=== PATIENT | male | born 1935 | race Caucasian/White ===

== ENCOUNTER 2016-04-03 10:35 | Emergency (ER) | payer BC ==
[~2016-04-03] VITALS: Ht 180.3 cm; Wt 97.6 kg
[2016-04-03 10:44] VITALS: TEMP 36.6; Ht 180.3 cm; Wt 97.6 kg
[2016-04-03] MEDS ORDERED: LEVO75TA PO (11:09)
--- NOTE | 2016-04-03 12:23 | DIAGNOSTIC IMAGING REPORT ---
CT HEAD WITHOUT CONTRAST (CT) CLINICAL HISTORY: Confusion status post head trauma COMPARISON STUDY: No previous studies for comparison. TECHNIQUE: Axial CT of the brain is performed from the vertex to the skull base. IV contrast was not administered for this examination. CT DOSE: 614.27 mGy.cm FINDINGS: No intra or extra-axial mass lesions are visualized. There is no CT evidence of acute cortical infarction. There is no evidence of midline shift. There is no acute hemorrhage. No calvarial fractures are visualized. There are extensive white matter hypodensities likely on a small vessel basis. There is mild ventricular prominence, proportional to degree of volume loss. 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 There is no evidence of acute sinusitis IMPRESSION: 1. Extensive white matter disease, likely on a small vessel ischemic basis 2. No acute intracranial findings. No evidence of acute hemorrhage. Electronically signed by: Lawson Muñoz M.D. 04/03/2016 12:22 PM
[2016-04-03 12:45] VITALS: BP 130/91; PULSE 71; O2SAT 94
--- NOTE | 2016-04-03 12:45 | EMERGENCY ROOM VISIT NOTE ---
History Report prepared by Elham: Gabriela Pyle Under the Supervision of: Dr. Wayne Wilson D.O. First contact with patient: 11:44 Chief Complaint: FALL Stated Complaint: CONFUSION History of Present Illness The patient is a 80 year old male who presents to the Emergency Room with complaints of a sudden fall that occurred [employer]. He rates his discomfort as a 1/ 10 in severity. The patient came to the ED via ambulance. EMS found the patient lying in the street. He states that he was getting the mail when he lost his balance, which is what caused him to fall. He fell onto his left side and hit the left side of his head but did not experience LOC. His mailbox is a little bit away and he states that he always walks to get the mail without shoes on which he states is why his feet are dirty.He also states that he bathes every two days and today was the day that he was supposed to bathe but he hasn't had the chance to. The patient states that he feels fine and was brought here against his will. The patient states that this is only the second time that he fell in 10 years. The patient is not oriented to time but states that he doesn' t need to know that. Source of History: patient Onset: [employer]DEL [employer]ER Symptom Intensity: /10 Quality: other (fall) Timing: other (sudden) Associated Symptoms: No LOC Note: denies pain Review of Systems See HPI for pertinent positives & negatives. A total of 10 systems reviewed and were otherwise negative. Past Medical & Surgical Medical Problems: (1) Hypercholesteremia (2) Hypothyroidism Family History No pertinent family history Social History Smoking Status: Never Smoker Marital Status: Housing Status: lives with family Occupation Status: retired Current/Historical Medications Scheduled Levothyroxine Sodium (Synthroid), 1 TAB PO 3XWK Allergies Uncoded Allergies: N (Allergy, Unknown, 05/15/02) NOVACINE (Allergy, Unknown, 05/15/02) Physical Exam Vital Signs Date Time Temp Pulse Resp B/P Pulse Ox O2 Delivery O2 Flow Rate FiO2 04/03/16 12:45 71 16 130/91 94 04/03/16 10:44 36.6 76 19 135/83 98 Room Air 04/03/16 10:43 75 Physical Exam CONSTITUTIONAL/VITAL SIGNS: Reviewed / noted above. GENERAL: Non-toxic in appearance. INTEGUMENTARY: Warm, dry, and [place]. HEAD: Normocephalic. Abrasions to left side of face. EYES: without scleral icterus or trauma. ENT/OROPHARYNX: clear and moist. LYMPHADENOPATHY/NECK: Is supple without lymphadenopathy or meningismus. RESPIRATORY: Lungs clear and equal. CARDIOVASCULAR: Regular rate and rhythm. GI/ABDOMEN: Soft and nontender. No organomegaly or pulsatile mass. No rebound or guarding. Normal bowel sounds. EXTREMITIES: Warm and well perfused. BACK: No CVA tenderness. NEUROLOGICAL: Intact without focal deficits. GCS: 15 PSYCHIATRIC: normal affect. MUSCULOSKELETAL: Normally developed with good muscle tone. Medical Decision & Procedures ER Provider Diagnostic Interpretation: CT results as stated below per my review and radiologist interpretation: CT HEAD WITHOUT CONTRAST (CT) CLINICAL HISTORY: Confusion status post head trauma COMPARISON STUDY: No previous studies for comparison. TECHNIQUE: Axial CT of the brain is performed from the vertex to the skull base. IV contrast was not administered for this examination. CT DOSE: 614.27 mGy.cm FINDINGS: No intra or extra-axial mass lesions are visualized. There is no CT evidence of acute cortical infarction. There is no evidence of midline shift. There is no acute hemorrhage. No calvarial fractures are visualized. There are extensive white matter hypodensities likely on a small vessel basis. There is mild ventricular prominence, proportional to degree of volume loss. 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 There is no evidence of acute sinusitis IMPRESSION: 1. Extensive white matter disease, likely on a small vessel ischemic basis 2. No acute intracranial findings. No evidence of acute hemorrhage. Electronically signed by: Lawson Muñoz M.D. 04/03/2016 12:22 PM ED Course 1144: Previous medical records were reviewed. The patient was evaluated in room A10. A complete history and physical examination was performed. 1253: On reevaluation, the patient is doing well. I discussed the results and findings with the patient. He verbalized agreement of the treatment plan. He was discharged home. Medical Decision Differential includes close head injury, intracranial bleed, facial trauma, cervical spine trauma, chest and thoracic trauma, abdominal and intra-abdominal trauma, spine neurologic trauma, extremity trauma. This is a 80-year-old male who presents to the ED with a chief complaint of a fall. The fall occurred in the patient's [address] [place] mailbox. He stated he was going out to get his mail. He was his balance and fell. He had some abrasions to the left side of his face. The patient has no other complaints. A CT scan of the brain did not show any acute process. He denies any other injuries. He does have some mild bilateral knee abrasions but has full range of motion without discomfort or pain. The patient's son came to the ED and pick him up. He is felt to be stable for discharge. Impression Primary Impression: Fall Additional Impression: Abrasion Scribe Attestation The scribe's documentation has been prepared under my direction and personally reviewed by me in its entirety. I confirm that the note above accurately reflects all work, treatment, procedures, and medical decision making performed by me. Departure Information Dispostion Home / Self-Care Referrals Heladio Webb III, M.D. (PCP) Forms HOME CARE DOCUMENTATION FORM, IMPORTANT VISIT INFORMATION Patient Instructions A Signature Page, My [facility] Additional Instructions CAT scan did not show any significant injury. Watch wounds for infection. Follow-up with your doctor for further care and evaluation in 1-2 days as needed. Return to the emergency department for worsening or new symptoms or any concerns. You have been examined and treated today on an emergency basis only. This is not a substitute for, or an effort to provide, complete comprehensive medical care. It is impossible to recognize and treat all injuries or illnesses in a single emergency department visit. It is therefore important that you follow up closely with your doctor. Call as soon as possible for an appointment.
[2017-02-01] MEDS ORDERED: CMD3 PO (14:31)
[2017-02-01] MEDS ORDERED: LPR25 PO (14:31)
[2017-02-01] MEDS ORDERED: LVNIS80 SQ (14:31)
== END 2016-04-03 12:59 | disposition home or self-care (01) ==
LOC: EDBD 10:35 → C.EDA 10:37
DX: S00.81XA Abrasion of other part of head, initial encounter (principal); W19.XXXA Unspecified fall, initial encounter; E78.00 Pure hypercholesterolemia, unspecified; E03.9 Hypothyroidism, unspecified; Z79.899 Other long term (current) drug therapy

== ENCOUNTER 2016-09-29 18:55 | Emergency (ER) | payer BC ==
[~2016-09-29] VITALS: Ht 172.7 cm; Wt 84.3 kg
[~2016-09-29 18:55] MED LIST: LEVO75TA PO
[2016-09-29 19:06] VITALS: TEMP 36.9; Ht 172.7 cm; Wt 84.3 kg
[2016-09-29] MEDS ORDERED: HALOPERIDOL LACTATE 5 MG/ML 1 ML VIAL IM STA (19:31)
[2016-09-29] MEDS ORDERED: LORAZEPAM 2 MG/ML 1 ML VIAL IM STA (19:31)
[2016-09-29] MEDS ORDERED: HALOPERIDOL LACTATE 5 MG/ML 1 ML VIAL ONE (19:33)
[2016-09-29] MEDS ORDERED: LORAZEPAM 2 MG/ML 1 ML VIAL ONE (19:33)
--- NOTE | 2016-09-29 19:50 | EMERGENCY ROOM VISIT NOTE ---
History Report prepared by Elham: Maria L Rojas Under the Supervision of: Dr. Wayne Cage M.D. 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 Per nursing staff, the patient has a history of dementia and lives at [facility]. Today he reportedly had a call tolliver wrapped around his neck and was stating that he wanted to . The patient has increased agitation. HPI limited secondary to dementia and agitation. 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 Review of Systems See HPI for pertinent positives & negatives. ROS limited secondary to dementia and poor cooperation. Past Medical & Surgical Medical Problems: (1) Dementia (2) Hypercholesteremia (3) Hypothyroidism Family History No pertinent family history Social History Smoking Status: Unknown if Ever Smoked Marital Status: Housing Status: lives with family Occupation Status: retired Current/Historical Medications Scheduled Aspirin (Aspirin Ec), 81 MG PO DAILY Atorvastatin (Lipitor), 20 MG PO HS Cyanocobalamin (Vitamin Deficiency Inject), 1,000 MCG SQ WK Donepezil Hydrochloride (Donepezil Hcl), 10 MG PO HS Epinephrine (Epipen), 0.3 MG IM UD Ergocalciferol (Vitamin D 25380 Unit), 50,000 UNIT PO WK Escitalopram (Lexapro), 5 MG PO DAILY Lactase (Lactaid), 1 TAB PO TID Lactase (Lactaid), 1 TABS PO PRN Levothyroxine Sodium (Synthroid), 50 MCG PO DAILY Scheduled PRN Acetaminophen Tab (Tylenol), 650 MG PO Q4 PRN for Pain or Fever Senna/Docusate Sod (Senokot S), 1 TAB PO HS PRN for Constipation Allergies Coded Allergies: BEE STING (Verified Allergy, Unknown, UNKNOWN, 09/29/16) Uncoded Allergies: NOVACINE (Allergy, Unknown, 05/15/02) Physical Exam Vital Signs Date Time Temp Pulse Resp B/P (MAP) Pulse Ox O2 Delivery O2 Flow Rate FiO2 09/29/16 21:37 98 Room Air 6/30/17 21:37 87 12 97/71 99 09/29/16 21:00 74 12 118/74 99 Room Air 09/29/16 19:06 36.9 84 20 133/84 99 Room Air Physical Exam GENERAL: Patient is a healthy-appearing well-nourished, patient is yelling and screaming HEAD: Normocephalic atraumatic EYES: Ocular movements intact pupils equal and react to light OROPHARYNX mucous membranes are moist no exudates present no erythema or edema present NECK: Supple no nuchal rigidity CHEST: Good equal expansion LUNGS: Clear and equal to auscultation CARDIAC: Normal S1 and S2 ABDOMEN: Soft nontender no guarding BACK: No CVA tenderness EXTREMITIES: No pain upon palpation normal muscle strength in all groups no clubbing cyanosis or edema NEURO: Patient is following commands and answering questions appropriately. Alert and oriented x3 Cranial Nerves 2-12 grossly intact PSYCH: The patient is yelling and screaming. Medical Decision & Procedures ER Provider Diagnostic Interpretation: Radiology results as stated below per my review and radiologist interpretation: CT SCAN OF THE BRAIN WITHOUT IV CONTRAST FINDINGS: Brain parenchyma: There are age-related involutional changes noting advanced subcortical and periventricular microangiopathic change. There is no hemorrhage, mass effect, or evidence of acute territorial ischemia by CT criteria. Hernandez-white matter is preserved. No extra-axial fluid collection is seen. Ventricles, sulci, cisterns: Prominent secondary to involutional change. Megacisterna magna is incidentally noted. Intracranial vasculature: There is atherosclerotic calcification of the cavernous carotid and vertebral arteries. Calvarium: Unremarkable. Sinuses and mastoids: The visualized paranasal sinuses are clear. The mastoid air cells are well pneumatized. Orbits: The bony orbits are grossly intact. IMPRESSION: Senescent changes as above with no hemorrhage, mass effect, or evidence of acute territorial ischemia by CT criteria. Electronically signed by: Reji Rocha M.D. 09/29/2016 8:42 PM Dictated Date/Time: 09/29/2016 8:40 PM SINGLE VIEW CHEST FINDINGS: An AP, portable, upright chest radiograph is obtained. No prior studies are available for comparison at the time of dictation. The examination is significantly degraded by portable technique and patient rotation, as was by the patient's head obscuring the apices.. The heart is enlarged and there is atherosclerotic calcification of the thoracic aorta. The pulmonary vasculature is noncongested. Nonspecific interstitial thickening is noted. There is minimal left basilar atelectasis. No airspace consolidation, large pleural effusion, or pneumothorax is seen. The skeletal structures are osteopenic. The bony thorax is grossly intact. IMPRESSION: Cardiomegaly with no acute cardiopulmonary abnormality. Electronically signed by: Reji Rocha M.D. 09/29/2016 8:58 PM Dictated Date/Time: 09/29/2016 8:57 PM Laboratory Results 09/29/16 20:17 Red Blood Count 4.88, Mean Corpuscular Volume 89.3, Mean Corpuscular Hemoglobin 30.7, Mean Corpuscular Hemoglobin Concent 34.4, Mean Platelet Volume 10.5, Neutrophils (%) (Auto) 51.9, Lymphocytes (%) (Auto) 28.0, Monocytes (%) (Auto) 14.9, Eosinophils (%) (Auto) 3.0, Basophils (%) (Auto) 0.6, Neutrophils # (Auto ) 3.35, Lymphocytes # (Auto) 1.80, Monocytes # (Auto) 0.96, Eosinophils # (Auto ) 0.19, Basophils # (Auto) 0.04 09/29/16 20:17 Test 09/29/16 20:00 09/29/16 20:06 09/29/16 20:17 Bedside Glucose 104 mg/dl (70-99) Urine Color DK YELLOW Urine Appearance CLOUDY (CLEAR) Urine pH 5.0 (4.5-7.5) Urine Specific [place] 1.028 (1.000-1.030) Urine Protein NEG (NEG) Urine Glucose (UA) NEG (NEG) Urine Ketones TRACE (NEG) Urine Occult Blood 1+ (NEG) Urine Nitrite NEG (NEG) Urine Bilirubin NEG (NEG) Urine Urobilinogen NEG (NEG) Urine Leukocyte Esterase NEG (NEG) Urine WBC (Auto) 1-5 /hpf (0-5) Urine RBC (Auto) 0-4 /hpf (0-4) Urine Hyaline Casts (Auto) 1-5 /lpf (0-5) Urine Epithelial Cells (Auto) 5-10 /lpf (0-5) Urine Bacteria (Auto) NEG (NEG) Urine Opiates Screen NEG (NEG) Urine Methadone, Qualitative NEG (NEG) Urine Barbiturates NEG (NEG) Urine Phencyclidine (PCP) Level NEG (NEG) Ur Amphetamine/Methamphetamine NEG (NEG) MDMA (Ecstasy) Screen NEG (NEG) Urine Benzodiazepines Screen NEG (NEG) Urine Cocaine Metabolite NEG (NEG) Urine Marijuana (THC) NEG (NEG) White Blood Count 6.44 K/uL (4.8-10.8) Red Blood Count 4.88 M/uL (4.7-6.1) Hemoglobin 15.0 g/dL (14.0-18.0) Hematocrit 43.6 % (42-52) Mean Corpuscular Volume 89.3 fL (80-100) Mean Corpuscular Hemoglobin 30.7 pg (25-34) Mean Corpuscular Hemoglobin Concent 34.4 g/dl (32-36) Platelet Count 172 K/uL (130-400) Mean Platelet Volume 10.5 fL (7.4-10.4) Neutrophils (%) (Auto) 51.9 % Lymphocytes (%) (Auto) 28.0 % Monocytes (%) (Auto) 14.9 % Eosinophils (%) (Auto) 3.0 % Basophils (%) (Auto) 0.6 % Neutrophils # (Auto) 3.35 K/uL (1.4-6.5) Lymphocytes # (Auto) 1.80 K/uL (1.2-3.4) Monocytes # (Auto) 0.96 K/uL (0.11-0.59) Eosinophils # (Auto) 0.19 K/uL (0-0.5) Basophils # (Auto) 0.04 K/uL (0-0.2) RDW Standard Deviation 43.3 fL (36.4-46.3) RDW Coefficient of Variation 13.2 % (11.5-14.5) Immature Granulocyte % (Auto) 1.6 % Immature Granulocyte # (Auto) 0.10 K/uL (0.00-0.02) Anion Gap 8.0 mmol/L (3-11) Est Creatinine Clear Calc Drug Dose 88.0 ml/min Estimated GFR () 102.8 Estimated GFR (Non- 88.7 BUN/Creatinine Ratio 20.3 (10-20) Calcium Level 8.3 mg/dl (8.5-10.1) Total Bilirubin 0.5 mg/dl (0.2-1) Direct Bilirubin 0.2 mg/dl (0-0.2) Aspartate Amino Transf (AST/SGOT) 28 U/L (15-37) Alanine Aminotransferase (ALT/SGPT) 29 U/L (12-78) Alkaline Phosphatase 62 U/L (45-117) Total Protein 5.7 gm/dl (6.4-8.2) Albumin 2.5 gm/dl (3.4-5.0) Thyroid Stimulating Hormone (TSH) 4.770 uIu/ml (0.300-4.500) Ethyl Alcohol mg/dL < 3.0 mg/dl (0-3) Labs reviewed by ED physician. Medications Administered Medications (Trade) Dose Ordered Sig/Nigel Route Start Time Stop Time Status Last Admin Dose Admin Haloperidol Lactate (Haldol Inj) 10 mg NOW STAT IM 09/29/16 19:31 09/29/16 19:33 DC 09/29/16 19:41 10 MG Lorazepam (Ativan Inj) 2 mg NOW STAT IM 09/29/16 19:31 09/29/16 19:33 DC 09/29/16 19:41 2 MG ED Course 1920: Past medical records reviewed. The patient was evaluated in room A8. A complete history and physical examination was performed. 1930: Ativan Inj 2mg IM, Haldol Inj 10mg IM. 1932: Haldol Inj 10mg IM. Ativan Inj 2mg IM. 0: The patient was signed out to Dr. Capellan at change of shift. Medical Decision Differential diagnosis: Etiologies such as mood disorder, infection, hypoglycemia, electrolyte abnormalities, cardiac sources, intracerebral event, toxicologic, neurologic, as well as others were entertained. Medication Reconciliation: I attest that I have personally reviewed the patient' s current medication list Blood Pressure Screening: Patient was found to have normal blood pressure on screening and does not require follow up. This is a 81-year-old male who presents emergency department with an attempt to hang himself at his correction. Upon arrival to the emergency department the patient is belligerent and combative and will not allow anybody to come near him for this reason the patient was 10mg Haldol and 2 mg Ativan and so that a CT of the head could be obtained along with a chest x-ray and laboratory work. The patient's son is in [place] and cannot be here due to his being in the ICU in [place]. He was medically cleared by me. The patient was unable to tolerate mental health examination due to the sedation. Can help did provide 302 from the correction staff. He will be reassessed by can help in the morning. Patient will be signed out to Dr. Sena Helms change of shift. Impression Primary Impression: Mood disorder Scribe Attestation The scribe's documentation has been prepared under my direction and personally reviewed by me in its entirety. I confirm that the note above accurately reflects all work, treatment, procedures, and medical decision making performed by me. Departure Information Dispostion Still a Patient Referrals Heladio Webb III, M.D. (PCP) Patient Instructions My [facility]
[2016-09-29 20:28] LABS: BASO % 0.6 %; BASO ABS # 0.04 K/uL (0-0.2); COMPLETE YES; HEMATOCRIT 43.6 % (42-52); IG% 1.6 %; MEAN CELL VOLUME 89.3 fL (80-100); MEAN CORPUSCULAR HEMOGLOBIN 30.7 pg (25-34); MEAN CORPUSCULAR HGB CONC 34.4 g/dl (32-36); MEAN PLATELET VOLUME 10.5 fL (7.4-10.4); MONO % 14.9 %; NEUT % 51.9 %; PLATELET COUNT 172 K/uL (130-400); RED BLOOD COUNT 4.88 M/uL (4.7-6.1); WHITE BLOOD COUNT 6.44 K/uL (4.8-10.8)
[2016-09-29 20:33] LABS: URINE APPEARANCE CLOUDY (CLEAR); URINE BILIRUBIN NEG (NEG); URINE COLOR DK YELLOW; URINE NITRITE NEG (NEG); URINE SPECIFIC GRAVITY 1.028 (1.000-1.030); UROBILINOGEN NEG (NEG)
[2016-09-29 20:35] LABS: MANUAL MICROSCOPIC REQUIRED? NO; REVIEW REQ? NO
--- NOTE | 2016-09-29 20:43 | DIAGNOSTIC IMAGING REPORT ---
CT SCAN OF THE BRAIN WITHOUT IV CONTRAST CLINICAL HISTORY: Change in mental status. COMPARISON STUDY: CT of the brain dated 04/03/2016. TECHNIQUE: Unenhanced axial CT scan of the brain is performed from the vertex to the skull base. CT DOSE: 614.27 mGy.cm FINDINGS: Brain parenchyma: There are age-related involutional changes noting advanced subcortical and periventricular microangiopathic change. There is no hemorrhage, mass effect, or evidence of acute territorial ischemia by CT criteria. Hernandez-white matter is preserved. No extra-axial fluid collection is seen. Ventricles, sulci, cisterns: Prominent secondary to involutional change. Megacisterna magna is incidentally noted. Intracranial vasculature: There is atherosclerotic calcification of the cavernous carotid and vertebral arteries. Calvarium: Unremarkable. Sinuses and mastoids: The visualized paranasal sinuses are clear. The mastoid air cells are well pneumatized. Orbits: The bony orbits are grossly intact. IMPRESSION: Senescent changes as above with no hemorrhage, mass effect, or evidence of acute territorial ischemia by CT criteria. Electronically signed by: Reji Rocha M.D. 09/29/2016 8:42 PM Dictated Date/Time: 09/29/2016 8:40 PM
[2016-09-29 20:52] LABS: BUN/CREATININE RATIO 20.3 (10-20); CALCIUM 8.3 mg/dl (8.5-10.1); CREATININE 0.72 mg/dl (0.60-1.40); POTASSIUM 3.4 mmol/L (3.5-5.1)
[2016-09-29 20:54] LABS: BENZODIAZEPINE, URINE NEG (NEG); COCAINE,URINE NEG (NEG); PHENCYCLIDINE, URINE NEG (NEG)
--- NOTE | 2016-09-29 21:00 | DIAGNOSTIC IMAGING REPORT ---
SINGLE VIEW CHEST CLINICAL HISTORY: Change in mental status. FINDINGS: An AP, portable, upright chest radiograph is obtained. No prior studies are available for comparison at the time of dictation. The examination is significantly degraded by portable technique and patient rotation, as was by the patient's head obscuring the apices.. The heart is enlarged and there is atherosclerotic calcification of the thoracic aorta. The pulmonary vasculature is noncongested. Nonspecific interstitial thickening is noted. There is minimal left basilar atelectasis. No airspace consolidation, large pleural effusion, or pneumothorax is seen. The skeletal structures are osteopenic. The bony thorax is grossly intact. IMPRESSION: Cardiomegaly with no acute cardiopulmonary abnormality. Electronically signed by: Reji Rocha M.D. 09/29/2016 8:58 PM Dictated Date/Time: 09/29/2016 8:57 PM
[2016-09-29 21:02] LABS: THYROID STIMULATING HORMONE 4.77 uIu/ml (0.300-4.500)
[2016-09-29 21:37] VITALS: O2SAT 98
[2016-09-29] MEDS ORDERED: LACT3000 PO ×2 (22:44→22:49)
[2016-09-29] MEDS ORDERED: ASPI81TA28 PO (22:44)
[2016-09-29] MEDS ORDERED: ERGO500037 PO (22:44)
[2016-09-29] MEDS ORDERED: LEVO50TA PO (22:44)
[2016-09-29] MEDS ORDERED: SENN-65 PO (22:44)
[2016-09-29] MEDS ORDERED: ESCI10TA17 PO (22:44)
[2016-09-29] MEDS ORDERED: ATOR-22 PO (22:44)
[2016-09-29] MEDS ORDERED: ACET325T96 PO (22:44)
[2016-09-29] MEDS ORDERED: CYAN100074 SQ (22:44)
[2016-09-29] MEDS ORDERED: EPP3/2 IM (22:44)
[2016-09-29] MEDS ORDERED: DONE1TAB26 PO (22:44)
[2016-09-30] MEDS ORDERED: ESCITALOPRAM OXALATE 10 MG TAB PO STA (06:09)
[2016-09-30] MEDS ORDERED: LEVOTHYROXINE 50 MCG TAB PO STA (06:09)
--- NOTE | 2016-09-30 06:13 | EMERGENCY ROOM VISIT NOTE ---
ED Visit Note First contact with patient: 02:27 This case was signed out to me at change of shift. The patient had received sedation with Haldol and Ativan and cannot yet be evaluated. The patient slept throughout the night. 0605: He is easily awoken at this time. I will order morning medications. Once the patient is completely awake, he will be evaluated by psych. 0630: The case will be signed out to Dr. Snowden at change of shift.
--- NOTE | 2016-09-30 10:12 | EMERGENCY ROOM VISIT NOTE ---
ED Visit Note First contact with patient: 06:30 Patient signed out to me from Dr. Capellan awaiting placement following psychiatric evaluation. I reevaluated the patient at bedside. Patient denies any current complaints including chest pain, trouble breathing, palpitations, abdominal pain. The receiving facility requested an EKG be done on the patient. This was done by nursing staff and shown to me. EKG shows atrial fibrillation at a rate of 90, left axis, right bundle-branch block, no acute ischemic changes. Per records that accompanied the patient from [facility] he does have a history of controlled atrial fibrillation and currently takes aspirin, no other anticoagulation, likely due to age and fall risk in the setting of dementia.
[2016-09-30 12:40] VITALS: BP 133/78; PULSE 95; O2SAT 95
== END 2016-09-30 12:42 ==
LOC: EDBD 18:55 → C.EDA 18:57
DX: F39 Unspecified mood [affective] disorder (principal); F03.90 Unspecified dementia, unspecified severity, without behavioral disturbance, psychotic disturbance, mood disturbance, and anxiety; E78.00 Pure hypercholesterolemia, unspecified; E03.9 Hypothyroidism, unspecified; Z79.82 Long term (current) use of aspirin; Z79.899 Other long term (current) drug therapy

== ENCOUNTER 2017-01-31 15:23 | Inpatient (IN) | payer BC, OTHER ==
[~2017-01-31] VITALS: Ht 180.3 cm; Wt 77.7 kg
[~2017-01-31 15:23] MED LIST changes: +CYAN100074 SQ; +ERGO500037 PO; +ESCI10TA17 PO; +LACT3000 PO; -LEVO75TA PO; +SENN-65 PO
[2017-01-31] MEDS ORDERED: ASPIRIN 81 MG CHEW PO STA (15:47)
[2017-01-31] MEDS ORDERED: DILTIAZEM BOLUS / DRIP IV STA ×2 (15:47→16:52)
[2017-01-31] MEDS ORDERED: DILTIAZEM HCL INJ 125 MG in DEXTROSE 5% 100ML IV PRN (16:00)
[2017-01-31] MEDS ORDERED: DILTIAZEM HCL 5 MG/ML 5 ML VIAL IV SCH (16:00)
[2017-01-31] MEDS ORDERED: VENL75CA PO (16:06)
[2017-01-31] MEDS ORDERED: OLAN1TAB7 PO (16:06)
[2017-01-31] MEDS ORDERED: SENN1TAB80 PO (16:06)
[2017-01-31] MEDS ORDERED: POLY335019 PO (16:06)
[2017-01-31] MEDS ORDERED: CLOP1TAB15 PO (16:06)
[2017-01-31] MEDS ORDERED: CYAN100020 PO (16:06)
[2017-01-31 16:13] LABS: BASO % 0.5 %; BASO ABS # 0.04 K/uL (0-0.2); COMPLETE YES; EOS % 2.4 %; HEMATOCRIT 47.1 % (42-52); IG% 0.3 %; LYMPH % 23.5 %; LYMPH ABS # 1.83 K/uL (1.2-3.4); MEAN CELL VOLUME 94.4 fL (80-100); MEAN CORPUSCULAR HEMOGLOBIN 31.3 pg (25-34); MEAN CORPUSCULAR HGB CONC 33.1 g/dl (32-36); MEAN PLATELET VOLUME 11.6 fL (7.4-10.4); MONO % 8.1 %; NEUT % 65.2 %; PLATELET COUNT 181 K/uL (130-400); RED BLOOD COUNT 4.99 M/uL (4.7-6.1); WHITE BLOOD COUNT 7.78 K/uL (4.8-10.8)
--- NOTE | 2017-01-31 16:21 | DIAGNOSTIC IMAGING REPORT ---
CHEST ONE VIEW PORTABLE CLINICAL HISTORY: Chest pain. COMPARISON STUDY: Chest radiograph September 29, 2016. FINDINGS: There may be underlying emphysema. No pneumothorax or pleural effusion is present. There is no consolidation to suggest pneumonia. Cardiomediastinal silhouette is normal. Pulmonary vascularity is normal. IMPRESSION: 1. No acute cardiopulmonary findings. 2. Possible emphysema. Electronically signed by: Iftikhar Marr M.D. 01/31/2017 4:20 PM Dictated Date/Time: 01/31/2017 3:55 PM
[2017-01-31 16:38] LABS: BUN/CREATININE RATIO 18.4 (10-20); CALCIUM 9.1 mg/dl (8.5-10.1); CREATININE 0.82 mg/dl (0.60-1.40); POTASSIUM 4.3 mmol/L (3.5-5.1)
[2017-01-31 16:40] VITALS: BP 122/87; PULSE 73; TEMP 36.8; O2SAT 96; Ht 180.3 cm; Wt 77.7 kg
--- NOTE | 2017-01-31 16:50 | History and Physical ---
History & Physical Date & Time of Service: Jan 31, 2017 at 16:50 Chief Complaint: Cardaic Assessment Primary Care Physician: Heladio Webb III, M.D. 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 , with past medical hx of CVA , hyperlipidemia , Hypothyroidism , depression Has been following with Neurology for dementia, there is concern for TIA /CVA , pt was referred to Cardiology office for Holter monitor Had office visit with Cardiology Dr Cooper at [facility] , pt noted to be tachycardic with rapid irregular rhythm , EKG in office showed rapid afib RVR ~130 pt is a very poor historian due to Dementia , does not recall event of having a stroke on Record -pt is at [facility] , can not tell me whether he is at the Assisted Living or at the SNF denies of any complain of palpitation , no SOB or chest discomfort not sure why he in Hospital and hooked up to all the IV medications pt has no significant past cardiac history. No prior hx of arrhythmia or Afib Past Medical/Surgical History Medical Problems: (1) Dementia Status: Chronic (2) Hypercholesteremia Status: Chronic (3) Hypothyroidism Status: Chronic Family History No pertinent family history Social History Smoking Status: Never Smoker Marital Status: Occupational Status: retired Multi-Drug Resistant Organisms History of MDRO: No Allergies Coded Allergies: Lactose Intolerance (GI) (Verified Allergy, Intermediate, PT states lactose intolerant, 09/30/16) BEE STING (Verified Allergy, Unknown, UNKNOWN, 09/29/16) Uncoded Allergies: NOVACINE (Allergy, Unknown, 05/15/02) Home Medications Scheduled Aspirin (Aspirin Ec), 81 MG PO DAILY Atorvastatin (Lipitor), 20 MG PO HS Clopidogrel (Plavix), 75 MG PO DAILY Cyanocobalamin (Vitamin B12), 1,000 MCG PO DAILY Donepezil Hydrochloride (Donepezil Hcl), 10 MG PO HS Ergocalciferol (Vitamin D 38604 Unit), 50,000 INTER.UNIT PO WK Levothyroxine Sodium (Synthroid), 50 MCG PO DAILY Olanzapine (Zyprexa), 2.5 MG PO AMHS Polyethylene Glycol 3350 (Miralax), 17 GM PO QAM Sennosides (Senna Lax), 17.2 MG PO QAM Venlafaxine Hcl (Effexor Xr), 75 MG PO QAM Scheduled PRN Acetaminophen Tab (Tylenol), 650 MG PO Q4H PRN for Pain or Fever Epinephrine (Epipen), 0.3 MG IM Q24H PRN for Bee Sting(s) Review of Systems limited due pt's dementia , unable to recall Neurologic: + memory loss Physical Exam Vital Signs Date Time Temp Pulse Resp B/P (MAP) Pulse Ox O2 Delivery O2 Flow Rate FiO2 01/31/17 16:19 96 20 122/88 96 Room Air 01/31/17 16:16 116 01/31/17 15:33 97 Room Air 01/31/17 15:33 36.3 119 28 139/86 97 Room Air General Appearance: no apparent distress Head: normocephalic, atraumatic Eyes: PERRL, EOMI, sclerae normal Neck: no JVD, no carotid bruits, trachea midline Respiratory/Chest: lungs clear, normal breath sounds, no respiratory distress Cardiovascular: + irregularly irregular Abdomen/GI: non tender, soft Neurologic/Psych: no motor/sensory deficits, alert, + pertinent finding ( demenita , forgetfulness ) Diagnostics Laboratory Results Results Past 24 Hours Test 01/31/17 15:37 01/31/17 15:54 Range/Units Creatine Kinase MB Ratio 0-3.0 White Blood Count 7.78 4.8-10.8 K/uL Red Blood Count 4.99 4.7-6.1 M/uL Hemoglobin 15.6 14.0-18.0 g/dL Hematocrit 47.1 42-52 % Mean Corpuscular Volume 94.4 80-100 fL Mean Corpuscular Hemoglobin 31.3 25-34 pg Mean Corpuscular Hemoglobin Concent 33.1 32-36 g/dl Platelet Count 181 130-400 K/uL Mean Platelet Volume 11.6 7.4-10.4 fL Neutrophils (%) (Auto) 65.2 % Lymphocytes (%) (Auto) 23.5 % Monocytes (%) (Auto) 8.1 % Eosinophils (%) (Auto) 2.4 % Basophils (%) (Auto) 0.5 % Neutrophils # (Auto) 5.07 1.4-6.5 K/uL Lymphocytes # (Auto) 1.83 1.2-3.4 K/uL Monocytes # (Auto) 0.63 0.11-0.59 K/uL Eosinophils # (Auto) 0.19 0-0.5 K/uL Basophils # (Auto) 0.04 0-0.2 K/uL RDW Standard Deviation 47.4 36.4-46.3 fL RDW Coefficient of Variation 13.9 11.5-14.5 % Immature Granulocyte % (Auto) 0.3 % Immature Granulocyte # (Auto) 0.02 0.00-0.02 K/uL Sodium Level 141 136-145 mmol/L Potassium Level 4.3 3.5-5.1 mmol/L Chloride Level 107 98-107 mmol/L Carbon Dioxide Level 30 21-32 mmol/L Anion Gap 4.0 3-11 mmol/L Blood Urea Nitrogen 15 7-18 mg/dl Creatinine 0.82 0.60-1.40 mg/dl Est Creatinine Clear Calc Drug Dose 77.8 ml/min Estimated GFR () 97.5 Estimated GFR (Non- 84.1 BUN/Creatinine Ratio 18.4 10-20 Random Glucose 111 70-99 mg/dl Calcium Level 9.1 8.5-10.1 mg/dl Diagnostic Radiology CHEST ONE VIEW PORTABLE CLINICAL HISTORY: Chest pain. COMPARISON STUDY: Chest radiograph September 29, 2016. FINDINGS: There may be underlying emphysema. No pneumothorax or pleural effusion is present. There is no consolidation to suggest pneumonia. Cardiomediastinal silhouette is normal. Pulmonary vascularity is normal. IMPRESSION: 1. No acute cardiopulmonary findings. 2. Possible emphysema. EKG Vent. rate 118 BPM MN interval * ms QRS duration 148 ms QT/QTc 378/529 ms P-R-T axes * 258 13 Atrial fibrillation with rapid ventricular response with premature ventricular or aberrantly conducted complexes Right bundle branch block Abnormal ECG When compared with ECG of 30-SEP-2016 09:53, No significant change was found Confirmed by DEWAYNE GUEVARA ([id number]) on 01/31/2017 4:50:40 PM Impression Assessment and Plan AFIB RVR new diagnosis prior hx of CVA , was seen at Cardiology office at [facility] for Holter monitor placement -recommended by Neurology pt found to be in rapid Afib RVR -pt was sent to [facility] ED in ER pt remains in Afib IV Cardizem gtt ordered for Beta kateryna pt denies of symptom of chest pain , SOB , DYE or dizzy spell admit in tele serial cardiac markers , ECHO to assess LV function , wall motion activity IV heparin wt based protocol Cardiology consulted , case d/w Cardiology PRIOR HX OF CVA : cont Aspirin , Plavix , statin no focal deficit PROLONG QTc: Qtc > 500 avoid medication can prolong /worsen Qtc SSRI /Namenda on hold avoid Zofran monitor in tele daily EKG follow electrolytes daily to monitor K/Mg level HX OF DEPRESSION : will hold Celexa due to prolong Qtc DEMENTIA : oriented to person only follows with Neurology will hold Namenda for prolong Qtc HYPOTHYROIDISM : cont Levothyroxine 50 mcg daily TSH -wnl HYPERLIPIDEMIA ; cont statin ordered for fasting lipid panel in AM ELEVATED D DIMER : FULL CODE DVT PROPHYLAXIS : IV heparin wt based protocol DISPOSITION: resident at [facility] PT/OT al social service consulted for discharge planning Level of Care Telemetry Resuscitation Status FULL RESUSCITATION VTE Prophylaxis VTE Risk Assessment Done? Y/N: Yes Risk Level: Moderate Additional Copies To Serge Cooper, Heladio Rick III, M.D.
[2017-01-31 16:58] LABS: CKMB/CK RATIO 2.8 (0-3.0)
[2017-01-31] MEDS ORDERED: NITROGLYCERIN 0.4 MG SL PER TAB CHARGE SL PRN (17:00)
[2017-01-31] MEDS ORDERED: EPINEPHRINE ADULT AUTO-INJECT 0.3 MG SYR IM PRN (17:00)
[2017-01-31] MEDS ORDERED: POLYETHYLENE (MIRALAX) 17 GM PACK PO PRN (17:00)
[2017-01-31] MEDS ORDERED: ACETAMINOPHEN 325 MG TAB PO PRN (17:00)
[2017-01-31] MEDS ORDERED: MAGNESIUM HYDROXIDE SUSP 30 ML UDC PO PRN (17:00)
[2017-01-31] MEDS ORDERED: ALUMINUM/MAGNESIUM/SIMETH (MAALOX MAX) 30 ML UDC PO PRN (17:00)
[2017-01-31] MEDS ORDERED: HEPARIN 25000 UNIT/500 ML D5W ONE (17:11)
[2017-01-31 17:40] VITALS: O2SAT 96
[2017-01-31] MEDS ORDERED: HEPARIN 25000 UNIT/ D5W 500 ML (PHARMACY PREPARED) IV PRN ×2 (17:45)
[2017-01-31 19:08] VITALS: BP 131/75; PULSE 80; TEMP 36.8; O2SAT 97
[2017-01-31] MEDS ORDERED: PNEUMOCOCCAL POLYSACCHARIDES 25 MCG/0.5 ML VIAL/SYR IM. ONE (20:00)
[2017-01-31] MEDS ORDERED: PNEUMOCOCCAL ADMINISTRATION CHARGE ONE (20:00)
--- NOTE | 2017-01-31 20:11 | EMERGENCY ROOM VISIT NOTE ---
History Report prepared by Elham: Evelyn Celis Under the Supervision of: Dr. Paulo Hussein D.O. 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 The patient was at a neurology appointment today. He was sent over to cardiology for a heart monitor. They found that his heart rate was fast and irregular. He was sent to the ED. Pt denies headache, change in vision, fevers, chest pain, shortness of breath, nausea, vomiting, diarrhea, pain with urination, abdominal pain, leg swelling and melena. He denies any history of atrial fibrillation. He had a stroke several months ago. He has a history of dementia and lives at [place]. He denies any history of brain bleed, blood in the stool, hematuria, hematemesis , hemoptysis, recent surgeries or trauma. 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 Review of Systems See HPI for pertinent positives & negatives. A total of 10 systems reviewed and were otherwise negative. Past Medical & Surgical Medical Problems: (1) Atrial fibrillation with RVR (2) Dementia (3) Hypercholesteremia (4) Hypothyroidism Family History No pertinent family history Social History Smoking Status: Unknown if Ever Smoked Marital Status: Housing Status: lives with family Occupation Status: retired Current/Historical Medications Scheduled Aspirin (Aspirin Ec), 81 MG PO DAILY Atorvastatin (Lipitor), 20 MG PO HS Clopidogrel (Plavix), 75 MG PO DAILY Cyanocobalamin (Vitamin B12), 1,000 MCG PO DAILY Donepezil Hydrochloride (Donepezil Hcl), 10 MG PO HS Ergocalciferol (Vitamin D 80959 Unit), 50,000 INTER.UNIT PO WK Levothyroxine Sodium (Synthroid), 50 MCG PO DAILY Olanzapine (Zyprexa), 2.5 MG PO AMHS Polyethylene Glycol 3350 (Miralax), 17 GM PO QAM Sennosides (Senna Lax), 17.2 MG PO QAM Venlafaxine Hcl (Effexor Xr), 75 MG PO QAM Scheduled PRN Acetaminophen Tab (Tylenol), 650 MG PO Q4H PRN for Pain or Fever Epinephrine (Epipen), 0.3 MG IM Q24H PRN for Bee Sting(s) Allergies Coded Allergies: Lactose Intolerance (GI) (Verified Allergy, Intermediate, PT states lactose intolerant, 09/30/16) BEE STING (Verified Allergy, Unknown, UNKNOWN, 09/29/16) Uncoded Allergies: NOVACINE (Allergy, Unknown, 05/15/02) Physical Exam Vital Signs Date Time Temp Pulse Resp B/P (MAP) Pulse Ox O2 Delivery O2 Flow Rate FiO2 01/31/17 16:40 36.8 73 20 122/87 96 Room Air 01/31/17 16:30 85 20 125/76 95 Room Air 01/31/17 16:19 96 20 122/88 96 Room Air 01/31/17 16:16 116 01/31/17 15:33 97 Room Air 01/31/17 15:33 36.3 119 28 139/86 97 Room Air Physical Exam GENERAL: Sitting up in bed, chronically ill appearing, no acute distress, nontoxic EYE EXAM: normal conjunctiva. OROPHARYNX: no exudate, no erythema, lips, buccal mucosa, and tongue normal and mucous membranes are moist NECK: supple, no nuchal rigidity, no adenopathy, non-tender LUNGS: Clear to auscultation. Normal chest wall mechanics HEART: Tachycardic and irregularly irregular. no murmurs, S1 normal and S2 normal ABDOMEN: abdomen soft, non-tender, normo-active bowel sounds, no masses, no rebound or guarding. BACK: Back is symmetrical on inspection and there is no deformity, no midline tenderness, no CVA tenderness. SKIN: no rashes and no bruising UPPER EXTREMITIES: upper extremities are grossly normal. LOWER EXTREMITIES: No pitting edema. Calves equal bilaterally. NEURO EXAM: Normal sensorium, cranial nerves II-XII grossly intact, normal speech, no gross weakness of arms, no gross weakness of legs. Medical Decision & Procedures ER Provider Diagnostic Interpretation: Radiology results as stated below per my review and the radiologist's interpretation: CHEST ONE VIEW PORTABLE CLINICAL HISTORY: Chest pain. COMPARISON STUDY: Chest radiograph September 29, 2016. FINDINGS: There may be underlying emphysema. No pneumothorax or pleural effusion is present. There is no consolidation to suggest pneumonia. Cardiomediastinal silhouette is normal. Pulmonary vascularity is normal. IMPRESSION: 1. No acute cardiopulmonary findings. 2. Possible emphysema. Electronically signed by: Iftikhar Marr M.D. 01/31/2017 4:20 PM Dictated Date/Time: 01/31/2017 3:55 PM Laboratory Results 01/31/17 15:54 Red Blood Count 4.99, Mean Corpuscular Volume 94.4, Mean Corpuscular Hemoglobin 31.3, Mean Corpuscular Hemoglobin Concent 33.1, Mean Platelet Volume 11.6, Neutrophils (%) (Auto) 65.2, Lymphocytes (%) (Auto) 23.5, Monocytes (%) (Auto) 8.1, Eosinophils (%) (Auto) 2.4, Basophils (%) (Auto) 0.5, Neutrophils # (Auto) 5.07, Lymphocytes # (Auto) 1.83, Monocytes # (Auto) 0.63, Eosinophils # (Auto) 0.19, Basophils # (Auto) 0.04 01/31/17 15:54 Test 01/31/17 15:54 White Blood Count 7.78 K/uL (4.8-10.8) Red Blood Count 4.99 M/uL (4.7-6.1) Hemoglobin 15.6 g/dL (14.0-18.0) Hematocrit 47.1 % (42-52) Mean Corpuscular Volume 94.4 fL (80-100) Mean Corpuscular Hemoglobin 31.3 pg (25-34) Mean Corpuscular Hemoglobin Concent 33.1 g/dl (32-36) Platelet Count 181 K/uL (130-400) Mean Platelet Volume 11.6 fL (7.4-10.4) Neutrophils (%) (Auto) 65.2 % Lymphocytes (%) (Auto) 23.5 % Monocytes (%) (Auto) 8.1 % Eosinophils (%) (Auto) 2.4 % Basophils (%) (Auto) 0.5 % Neutrophils # (Auto) 5.07 K/uL (1.4-6.5) Lymphocytes # (Auto) 1.83 K/uL (1.2-3.4) Monocytes # (Auto) 0.63 K/uL (0.11-0.59) Eosinophils # (Auto) 0.19 K/uL (0-0.5) Basophils # (Auto) 0.04 K/uL (0-0.2) RDW Standard Deviation 47.4 fL (36.4-46.3) RDW Coefficient of Variation 13.9 % (11.5-14.5) Immature Granulocyte % (Auto) 0.3 % Immature Granulocyte # (Auto) 0.02 K/uL (0.00-0.02) D-Dimer 1150 ug/L FEU (0-500) Anion Gap 4.0 mmol/L (3-11) Est Creatinine Clear Calc Drug Dose 77.8 ml/min Estimated GFR () 97.5 Estimated GFR (Non- 84.1 BUN/Creatinine Ratio 18.4 (10-20) Calcium Level 9.1 mg/dl (8.5-10.1) Total Creatine Kinase 40 U/L (39-308) Creatine Kinase MB 1.1 ng/ml (0.5-3.6) Creatine Kinase MB Ratio 2.8 (0-3.0) Troponin I 0.061 ng/ml (0-0.045) Thyroid Stimulating Hormone (TSH) 2.020 uIu/ml (0.300-4.500) Laboratory results per my review. Medications Administered Medications (Trade) Dose Ordered Sig/Nigel Route Start Time Stop Time Status Last Admin Dose Admin Aspirin (Aspirin Chew) 324 mg NOW STAT PO 01/31/17 15:47 01/31/17 15:48 DC 01/31/17 16:17 324 MG Diltiazem HCl (Cardizem Inj) 10 mg TODAY@1600 IV 01/31/17 16:00 01/31/17 17:00 DC 01/31/17 16:16 10 MG Diltiazem HCl 125 mg/Dextrose 125 ml @ 0 mls/hr Q0M PRN IV 01/31/17 16:00 03/02/17 15:59 01/31/17 16:17 10 MLS/HR ECG Indication: tachycardia Rate (beats per minute): 118 Rhythm: atrial fibrillation (with RVR) Findings: PVC, RBBB ED Course ED COURSE: Vital signs were reviewed and showed tachycardia. The patients medical record was reviewed The above diagnostic studies were performed and reviewed. ED treatments and interventions as stated above. 1529: The patient was evaluated in room A9B. A complete history and physical examination was performed. 1547: Aspirin 324 mg PO, Diltiazem HCl 10 mg IV. 1646: I [facility] the [facility] She will evaluate the patient for further management. 1650: Upon reevaluation, the patient is resting comfortably.I discussed my findings with the patient and his son and they understand and agree with the treatment plan. Based on the patients age, coexisting illnesses, exam and lab findings the decision to treat as an inpatient was made. The patient remained stable while under my care. The patient will be evaluated for further management. Medical Decision Differential diagnoses includes but is not limited to acute coronary syndrome, myocardial infarction, pericarditis, pulmonary embolus, aortic dissection, pneumonia, pneumothorax, musculoskeletal, shingles, esophageal. Patient is a 81-year-old male who is at his neurologist appointment and was found to be tachycardic. He was sent to cardiology who found him to be in A. fib with RVR. EMS transported him to the ER. Heart rate was in the 110s to 130s. BMP showed an elevated troponin 0.06. Favor demand ischemia. EC was unremarkable. Chest x-ray was unremarkable. Patient was placed on a Cardizem drip and bolus. Patient was monitored closely. Patient was admitted to internal medicine completely asymptomatic. Medication Reconcilliation Current Medication List: was personally reviewed by me Blood Pressure Screening Patient's blood pressure: Normal blood pressure Blood pressure disposition: Did not require urgent referral Consults Time Called: 1641 Consulting Physician[facility] Returned Call: 1646 I reviewed the patient's case with her. She will evaluate the patient for further management. Impression Primary Impression: Atrial fibrillation with rapid ventricular response Additional Impression: Elevated troponin Critical Care I have personally spent 35 minutes of critical care time in the direct management of this patient. This includes bedside care, interpretation of diagnostic studies, and testing, discussion with consultants, patient, and family members, and other required patient management activities. This 35 minutes is in excess of all separately billable procedures. Scribe Attestation The scribe's documentation has been prepared under my direction and personally reviewed by me in its entirety. I confirm that the note above accurately reflects all work, treatment, procedures, and medical decision making performed by me. Departure Information Dispostion Being Evaluated By Hospitalist Referrals Heladio Webb III, M.D. (PCP) Patient Instructions My [facility] Problem Qualifiers
[2017-01-31] MEDS ORDERED: ATORVASTATIN 20 MG TAB PO SCH (21:00)
[2017-01-31] MEDS ORDERED: OPTIRAY 320 IV PRN (21:45)
[2017-01-31] MEDS: METOPROLOL TARTRATE 25 MG TAB PO SCH (22:29)
[2017-01-31] MEDS ORDERED: ATOR-22 PO (22:44)
[2017-01-31] MEDS ORDERED: DONE1TAB26 PO (22:44)
[2017-01-31] MEDS ORDERED: ACET325T96 PO (22:44)
[2017-01-31] MEDS ORDERED: EPP3/2 IM (22:44)
[2017-01-31] MEDS ORDERED: ASPI81TA28 PO (22:44)
[2017-01-31] MEDS ORDERED: LEVO50TA PO (22:44)
--- NOTE | 2017-01-31 22:56 | DIAGNOSTIC IMAGING REPORT ---
(CHEST FOR PE) ANGIO WITH CT DOSE: 341.15 mGy.cm HISTORY: Chest pain dyspnea TECHNIQUE: Multiaxial CT images of the chest were performed following the intravenous administration of contrast to evaluate the pulmonary arteries. Maximal intensity projection images were also obtained. A dose lowering technique was utilized adhering to the principles of ALARA. COMPARISON STUDY: None. FINDINGS: Thoracic aorta shows minimal atherosclerotic change. Pulmonary vasculature enhances appropriately. No major filling defect is appreciated. There are vessels of the lung bases are not well evaluated due to respiratory motion. Emphysematous changes noted bilaterally. Bibasilar interstitial prominence is noted. There are no consolidative infiltrates. There is a small hiatal hernia. IMPRESSION: 1. Study is negative for a central or main pulmonary embolus 2. The pulmonary vessels in the lung bases are not well evaluated due to respiratory and somatic motion. 3. Emphysematous change. 4. Bibasilar interstitial change possibly atelectatic and/or inflammatory in nature The above report was generated using voice recognition software. It may contain grammatical, syntax or spelling errors. Electronically signed by: Karan Wilson M.D. 01/31/2017 10:55 PM Dictated Date/Time: 01/31/2017 10:51 PM
[2017-02-01 00:01] VITALS: BP 99/65; PULSE 63; TEMP 36.8; O2SAT 95
[2017-02-01 01:03] LABS: INR 1.1 (0.9-1.1); PROTHROMBIN TIME (PATIENT) 12.3 SECONDS (9.0-12.0)
[2017-02-01 01:04] LABS: CKMB/CK RATIO 2.1 (0-3.0)
[2017-02-01 03:54] VITALS: BP 110/72; PULSE 74; TEMP 36.4; O2SAT 94
[2017-02-01] MEDS ORDERED: LEVOTHYROXINE 50 MCG TAB PO SCH (06:00)
--- NOTE | 2017-02-01 07:02 | DIAGNOSTIC IMAGING REPORT ---
BILATERAL LOWER EXTREMITY VENOUS DOPPLER CLINICAL HISTORY: Elevated d-dimer. Atrial fibrillation with rapid ventricular response. COMPARISON STUDY: No previous studies for comparison. TECHNIQUE: Sonography of the deep venous system of the bilateral lower extremities was performed. Compression and augmentation were evaluated. FINDINGS: The bilateral common femoral, superficial femoral and popliteal veins were compressible. Augmentation was normal. Flow was shown within the deep calf vessels. IMPRESSION: No evidence of deep venous thrombus within the bilateral lower extremities. Electronically signed by: Iftikhar Marr M.D. 02/01/2017 7:01 AM Dictated Date/Time: 02/01/2017 7:00 AM
[2017-02-01 07:28] LABS: HEMATOCRIT 42.3 % (42-52); MEAN CELL VOLUME 94.4 fL (80-100); MEAN CORPUSCULAR HEMOGLOBIN 32.1 pg (25-34); MEAN PLATELET VOLUME 11.8 fL (7.4-10.4); PLATELET COUNT 161 K/uL (130-400); RED BLOOD COUNT 4.48 M/uL (4.7-6.1); WHITE BLOOD COUNT 6.93 K/uL (4.8-10.8)
[2017-02-01 07:46] LABS: PARTIAL THROMBOPLASTIN RATIO 3.3
[2017-02-01 08:00] LABS: CKMB/CK RATIO 2.2 (0-3.0)
[2017-02-01 08:01] LABS: BUN/CREATININE RATIO 17.9 (10-20); CALCIUM 8.6 mg/dl (8.5-10.1); CREATININE 0.7 mg/dl (0.60-1.40); MAGNESIUM 2.3 mg/dl (1.8-2.4); POTASSIUM 3.8 mmol/L (3.5-5.1)
[2017-02-01 08:05] LABS: CHOLESTEROL/HDL RATIO 2.4
[2017-02-01] MEDS ORDERED: PNEUMOCOCCAL ADMINISTRATION CHARGE ONE (08:15)
[2017-02-01] MEDS ORDERED: PNEUMOCOCCAL POLYSACCHARIDES 25 MCG/0.5 ML VIAL/SYR IM. ONE (08:15)
[2017-02-01 08:18] VITALS: BP 114/73; PULSE 75; TEMP 36.9; O2SAT 94
[2017-02-01] MEDS: METOPROLOL TARTRATE 25 MG TAB PO SCH (08:49)
[2017-02-01] MEDS ORDERED: ASPIRIN 81 MG ECTAB PO SCH (09:00)
[2017-02-01] MEDS ORDERED: SENNA 8.6 MG TAB PO SCH (09:00)
[2017-02-01] MEDS ORDERED: CLOPIDOGREL BISULFATE 75 MG TAB PO SCH (09:00)
[2017-02-01] MEDS ORDERED: POLYETHYLENE (MIRALAX) 17 GM PACK PO SCH (09:00)
[2017-02-01] MEDS ORDERED: CYANOCOBALAMIN 500 MCG TAB (VIT B-12) PO SCH (09:00)
--- NOTE | 2017-02-01 09:42 | Clinical Documentation Query ---
CLINICAL DOCUMENTATION QUERY 81 year old male who presents to the Emergency Room with complaints of persistent irregular heart beat. Troponin's are + and ECG showing changes when compare to previous. In your clinical opinion is this patient being managed for: ( ) Demand Ischemia in setting of Afib with RVR. ( ) Type II SD in setting of AFib RVR ( ) SD precipitating Afib RVR arrhythmia ( ) Not Agree ( ) Other explanation of clinical findings (Please Explain) ( ) Unable to determine (Please Define) ( ) Need to Discuss The medical record reflects the following clinical findings, treatment, and risk factors. Clinical Indicators: HR 119, Troponin's 0.061, 0.059, 0.052, ECG shows Atrial fibrillation with premature ventricular or aberrantly conducted complexes, Right bundle branch block, Left anterior fascicular block Bifascicular block Possible Inferior infarct Abnormal ECG When compared with ECG of 31-JAN-2017 15:30, Nonspecific T wave abnormality now evident in Lateral leads Treatment: ASA, IV Cardizem, IV Heparin, Plavix, Cardiology consult Risk Factors: Age, Hyperlipidemia, tachycardia, Atrial arrhythmia Please clarify and document your clinical opinion in the progress notes and discharge summary. Terms such as "probable", "suspected", "likely", "questionable", "possible", or "still to be ruled out" are acceptable. IF IN AGREEMENT, YOU MUST DOCUMENT ABOVE DIAGNOSTIC STATEMENT IN DAILY PROGRESS NOTES AND DISCHARGE SUMMARY. This document is not part of the patient's record. Thank You, David Artis, MARION [phone]
--- NOTE | 2017-02-01 10:08 | Progress Note ---
Medicine Progress Note Date & Time of Visit: Feb 01, 2017 at 09:59. Subjective seen resting in bed, awake, oriented x 2, not in distress states he feels fine overall denies chest pain, palpitations, dyspnea, dizziness no other symptoms Objective Last 8 Hrs Date Time Temp Pulse Resp B/P (MAP) Pulse Ox O2 Delivery O2 Flow Rate FiO2 02/01/17 08:18 36.9 75 18 114/73 (87) 94 Room Air 02/01/17 04:15 Room Air 02/01/17 03:54 36.4 74 16 110/72 (85) 94 Room Air Physical Exam: General- oriented x 2, not in distress, speaks in sentences with no effort Head- atraumatic Eyes- PERRL, EOMI, anicteric ENT- oropharynx clear Neck- supple, no JVD, no adenopathy, no thyromegaly Lungs- clear breath sounds bilaterally, no rales/wheezes Heart- normal rate, irregularly irregular rhythm, no murmurs Abdomen- normal bowel sounds, soft, nontender Extremities- no pretibial edema, no calf tenderness Neuro- alert, oriented x 2; PERRL, EOMI; no facial palsy; no dysarthria; motor 5 /5 bilaterally; sensation 100% no gross focal deficits Skin- warm & dry Laboratory Results: Last 24 Hours Test 01/31/17 15:54 02/01/17 00:20 02/01/17 06:57 02/01/17 06:58 White Blood Count 7.78 K/uL 6.93 K/uL Red Blood Count 4.99 M/uL 4.48 M/uL Hemoglobin 15.6 g/dL 14.4 g/dL Hematocrit 47.1 % 42.3 % Mean Corpuscular Volume 94.4 fL 94.4 fL Mean Corpuscular Hemoglobin 31.3 pg 32.1 pg Mean Corpuscular Hemoglobin Concent 33.1 g/dl 34.0 g/dl Platelet Count 181 K/uL 161 K/uL Mean Platelet Volume 11.6 fL 11.8 fL Neutrophils (%) (Auto) 65.2 % Lymphocytes (%) (Auto) 23.5 % Monocytes (%) (Auto) 8.1 % Eosinophils (%) (Auto) 2.4 % Basophils (%) (Auto) 0.5 % Neutrophils # (Auto) 5.07 K/uL Lymphocytes # (Auto) 1.83 K/uL Monocytes # (Auto) 0.63 K/uL Eosinophils # (Auto) 0.19 K/uL Basophils # (Auto) 0.04 K/uL RDW Standard Deviation 47.4 fL 48.1 fL RDW Coefficient of Variation 13.9 % 14.1 % Immature Granulocyte % (Auto) 0.3 % Immature Granulocyte # (Auto) 0.02 K/uL D-Dimer 1150 ug/L FEU Sodium Level 141 mmol/L 139 mmol/L Potassium Level 4.3 mmol/L 3.8 mmol/L Chloride Level 107 mmol/L 105 mmol/L Carbon Dioxide Level 30 mmol/L 29 mmol/L Anion Gap 4.0 mmol/L 4.0 mmol/L Blood Urea Nitrogen 15 mg/dl 13 mg/dl Creatinine 0.82 mg/dl 0.70 mg/dl Est Creatinine Clear Calc Drug Dose 77.8 ml/min 91.1 ml/min Estimated GFR () 97.5 104.0 Estimated GFR (Non- 84.1 89.8 BUN/Creatinine Ratio 18.4 17.9 Random Glucose 111 mg/dl 97 mg/dl Calcium Level 9.1 mg/dl 8.6 mg/dl Total Creatine Kinase 40 U/L 33 U/L 32 U/L Creatine Kinase MB 1.1 ng/ml 0.7 ng/ml 0.7 ng/ml Creatine Kinase MB Ratio 2.8 2.1 2.2 Troponin I 0.061 ng/ml 0.059 ng/ml 0.052 ng/ml Thyroid Stimulating Hormone (TSH) 2.020 uIu/ml Prothrombin Time 12.3 SECONDS Prothromb Time International Ratio 1.1 Activated Partial Thromboplast Time 102.9 SECONDS 86.1 SECONDS Partial Thromboplastin Ratio 4.0 3.3 Magnesium Level 2.3 mg/dl Triglycerides Level 83 mg/dl Cholesterol Level 102 mg/dl HDL Cholesterol 42 mg/dl LDL Cholesterol, Calculated 43 mg/dl VLDL Cholesterol, Calculated 17 mg/dl Cholesterol/HDL Ratio 2.4 Assessment & Plan 81 year old male with history of Dementia, TIA/CVA, HLD, Hypothyroidism, Depression presenting with a fib in RVR. NEW ONSET ATRIAL FIBRILLATION WITH RVR prior hx of CVA , was seen at Cardiology office at [facility] for Holter monitor placement -recommended by Neurology pt found to be in rapid Afib RVR -pt was sent to [facility] ED -- HR now controlled, still in A fib Cardizem drip discontinued--> now on Metoprolol 25mg po BID Heparin drip continued -- echo: Conclusions -- * The left ventricle is normal in size. * There is borderline concentric left ventricular hypertrophy. * The left ventricular wall motion is normal. * Septal motion is consistent with conduction abnormality. * Left ventricular systolic function is normal. * Ejection Fraction = 55-60%. * The left atrium is borderline dilated. * The right atrium is mildly dilated. * Aortic valve sclerosis moderate, without significant aortic valvular stenosis. * Trace aortic regurgitation. * There is moderate mitral regurgitation. * There is mild tricuspid regurgitation. -- Cardiology consulted, Dr. Penaloza, recommend to continue Metoprolol BID and continue with anticoagulation as outpatient given history of CVA/TIAs recommendations: Metoprolol 25mg BID Coumadin with Lovenox bridge, check INR daily and adjust Lovenox + Coumadin accordingly (goal INR 2-3) -- fall precautions ff up with Senior Ios Developer in 2 weeks PROLONG QTc: Qtc > 500--> 495 discussed with Psychiatry [facility] Pacheco, who discussed case with Dr. Pugh they recommend to hold Effexor and Aricept for now, continue with Zyprexa monitor QTC with EKG at least every [address] Pugh to follow patient in [facility] PRIOR HX OF TIA/CVA -- no new deficits -- discussed with Neurologist Dr. Chen since patient is now going to be on Lovenox + Coumadin for anticoagulation, he recommends to discontinue Aspirin and Plavix -- continue outpatient ff up with Neurologist Dr. Shaw DEMENTIA, HX OF DEPRESSION management as noted above HYPOTHYROIDISM : cont Levothyroxine 50 mcg daily TSH -wnl HYPERLIPIDEMIA LDL 43 cont statin ELEVATED D DIMER : d dimer 1150 Doppler US negative for DVT CT Ango negative for PE -- continue age appropriate cancer screening as outpatient ABNORMAL CT CHEST FINDING -- CT chest showing emphysematous changes per patient's son, patient did not smoke -- respiratory status stable -- ff up as outpatient DISPOSITION: d/c to [facility] follow up with PCP Dr. Webb in 1 week follow up with Psychiatrist Dr. Pugh in 1 week ff up with Senior Ios Developer Dr. Cooper in 2 weeks ff up with Neurologist Dr. Shaw as scheduled Current Inpatient Medications: Current Inpatient Medications Medications (Trade) Dose Ordered Sig/Nigel Route Start Time Stop Time Status Last Admin Dose Admin Diltiazem HCl 125 mg/Dextrose 125 ml @ 0 mls/hr Q0M PRN IV 01/31/17 16:00 03/02/17 15:59 01/31/17 16:17 10 MLS/HR Acetaminophen (Tylenol Tab) 650 mg Q4H PRN PO 01/31/17 17:00 03/02/17 16:59 Al Hydrox/Mg Hydrox/Simethicone (Maalox Max Susp) 15 ml Q4H PRN PO 01/31/17 17:00 03/02/17 16:59 Magnesium Hydroxide (Milk Of Magnesia Susp) 30 ml Q12H PRN PO 01/31/17 17:00 03/02/17 16:59 Nitroglycerin (Nitrostat Tab) 0.4 mg UD PRN SL 01/31/17 17:00 03/02/17 16:59 Aspirin (Ecotrin Tab) 81 mg QAM PO 02/01/17 09:00 03/03/17 08:59 02/01/17 08:47 81 MG Polyethylene (Miralax Powder Packet) 17 gm DAILY PRN PO 01/31/17 17:00 03/02/17 16:59 Atorvastatin Calcium (Lipitor Tab) 20 mg HS PO 01/31/17 21:00 03/02/17 20:59 01/31/17 21:05 20 MG Clopidogrel Bisulfate (plAVix TAB) 75 mg DAILY PO 02/01/17 09:00 03/03/17 08:59 02/01/17 08:48 75 MG Epinephrine (Epipen) 0.3 mg Q24H PRN IM 01/31/17 17:00 03/02/17 16:59 Levothyroxine Sodium (Synthroid Tab) 50 mcg DAILYBB PO 02/01/17 06:00 03/03/17 06:59 02/01/17 06:35 50 MCG Senna (Senokot Tab) 17.2 mg QAM PO 02/01/17 09:00 03/03/17 08:59 02/01/17 08:48 17.2 MG Cyanocobalamin (Vitamin B-12 Tab) 1,000 mcg DAILY PO 02/01/17 09:00 03/03/17 08:59 02/01/17 08:48 1,000 MCG Polyethylene (Miralax Powder Packet) 17 gm QAM PO 02/01/17 09:00 03/03/17 08:59 02/01/17 08:48 17 GM Heparin Sodium (Porcine) 04573 unit/Dextrose 500 ml @ 21 mls/hr [id number] PRN IV 01/31/17 17:45 03/02/17 17:44 Metoprolol Tartrate (Lopressor Tab) 25 mg BID PO 01/31/17 21:30 03/02/17 21:29 02/01/17 08:49 25 MG Ioversol (Optiray 320) 100 ml UD PRN IV 01/31/17 21:45 02/04/17 21:44
[2017-02-01 11:07] VITALS: BP 98/64; PULSE 87; TEMP 36.6; O2SAT 96
--- NOTE | 2017-02-01 12:26 | ECHOCARDIOGRAM REPORT ---
*NOTICE TO RECEIVING CONSTITUTION PARTY AGENCY This information is strictly Confidential and protected under [place] law. [place] law prohibits you from making any further disclosure of this information unless further disclosure is expressly permitted by the written consent of the person to whom it pertains or is authorized by law. A general authorization for the release of medical or other information is not sufficient for this purpose. Hospital accepts no responsibility if the information is made available to any other person, INCLUDING THE PATIENT. Interpretation Summary * Name: CLARENCE FENG Study Date: 02/01/2017 06:20 AM BP: 127/99 mmHg * Patient Location: C.2T\S\E221\S\1 HR: 79 * : 1935 (M/d/yyyy) Gender: Male Height: 71 in * Age: 81 yrs Ethnicity: CA Weight: 169 lb * Ordering Physician: Carrie Posadas * Referring Physician: Self, Referred * Performed By: Norm Villareal RCS * * Reason For Study: A-FIB * BSA: 2.0 m2 * -- Conclusions -- * The left ventricle is normal in size. * There is borderline concentric left ventricular hypertrophy. * The left ventricular wall motion is normal. * Septal motion is consistent with conduction abnormality. * Left ventricular systolic function is normal. * Ejection Fraction = 55-60%. * The left atrium is borderline dilated. * The right atrium is mildly dilated. * Aortic valve sclerosis moderate, without significant aortic valvular stenosis. * Trace aortic regurgitation. * There is moderate mitral regurgitation. * There is mild tricuspid regurgitation. Procedure Details * A complete two-dimensional transthoracic echocardiogram was performed (2D, M-mode, Doppler and color flow Doppler). Left Ventricle * The left ventricle is normal in size. * There is borderline concentric left ventricular hypertrophy. * Left ventricular systolic function is normal. * Ejection Fraction = 55-60%. * The left ventricular wall motion is normal. * Septal motion is consistent with conduction abnormality. Right Ventricle * The right ventricle is normal in size and function. Atria * The left atrium is borderline dilated. * The right atrium is mildly dilated. * No ASD detected; PFO is not assessed. Mitral Valve * The mitral valve leaflets appear thickened, but open well. * There is no mitral valve stenosis. * There is moderate mitral regurgitation. Tricuspid Valve * The tricuspid valve is not well visualized, but is grossly normal. * There is no tricuspid stenosis. * There is mild tricuspid regurgitation. Aortic Valve * The aortic valve is trileaflet. * The aortic valve opens well. * Aortic valve sclerosis moderate, without significant aortic valvular stenosis. * Trace aortic regurgitation. Pulmonic Valve * The pulmonic valve is not well visualized. Great Vessels * The aortic root is normal size. Pericardium/Pleural * There is no pericardial effusion. Great Vessels * Normal inferior vena cava diameter and respiratory variation suggests normal central venous pressure. MMode 2D Measurements and Calculations IVSd 1.1 cm IVSs 1.3 cm LVIDd 4.1 cm LVIDs 3.1 cm LVPWd 1.0 cm LVPWs 1.5 cm IVS/LVPW 1.0 FS 25.3 % EDV(Teich) 73.9 ml ESV(Teich) 36.7 ml EF(Teich) 50.4 % EDV(cubed) 68.6 ml ESV(cubed) 28.6 ml EF(cubed) 58.3 % % IVS thick 25.4 % % LVPW thick 46.5 % LV mass(C)d 142.7 grams LV mass(C)dI 72.7 grams/m\S\2 LV mass(C)s 150.6 grams LV mass(C)sI 76.7 grams/m\S\2 SV(Teich) 37.2 ml SI(Teich) 19.0 ml/m\S\2 SV(cubed) 40.0 ml SI(cubed) 20.4 ml/m\S\2 Ao root diam 3.4 cm Ao root area 9.1 cm\S\2 ACS 1.4 cm LA dimension 4.2 cm asc Aorta Diam 3.3 cm LA/Ao 1.2 EDV(MOD-sp4) 117.9 ml ESV(MOD-sp4) 49.8 ml EF(MOD-sp4) 57.7 % EDV(MOD-sp2) 89.1 ml ESV(MOD-sp2) 52.4 ml EF(MOD-sp2) 41.2 % SV(MOD-sp4) 68.1 ml SI(MOD-sp4) 34.7 ml/m\S\2 SV(MOD-sp2) 36.7 ml SI(MOD-sp2) 18.7 ml/m\S\2 Doppler Measurements and Calculations MV E max alan 100.3 cm/sec MV P1/2t max alan 104.1 cm/sec MV P1/2t 78.5 msec MVA(P1/2t) 2.8 cm\S\2 MV dec slope 388.2 cm/sec\S\2 MV dec time 0.24 sec Ao V2 max 126.2 cm/sec Ao max PG 6.4 mmHg Ao max PG (full) 4.2 mmHg AI max alan 322.3 cm/sec AI max PG 43.0 mmHg AI dec slope 138.4 cm/sec\S\2 AI P1/2t 682.0 msec LV V1 max PG 2.2 mmHg LV V1 max 74.0 cm/sec PA V2 max 62.9 cm/sec PA max PG 1.6 mmHg TR max alan 297.3 cm/sec
--- NOTE | 2017-02-01 12:37 | CARDIOLOGY CONSULTATION ---
DATE OF CONSULTATION: 02/01/2017 REFERRING: Juve Torres MD. PRIMARY CARE PHYSICIAN: Heladio Webb MD. INDICATIONS: Atrial fibrillation, elevated ventricular response rate, history of TIA stroke. HISTORY OF PRESENT ILLNESS: The patient is a 81-year-old male, currently a resident of [place] carries a history of past stroke cerebellar as well as possible recent TIA stroke. Underlying medical problems include hypertension and progressive dementia and dyslipidemia. The patient was referred for a neurologic evaluation due to history of recent events and was referred for Holter monitor. On presentation for Holter monitor, he was found to be in atrial fibrillation with elevated ventricular response rates. He is referred for hospitalization. EKGs and telemetry demonstrated atrial fibrillation with a rate related left bundle branch block, rates have come under control since admission with oral metoprolol. The patient is asymptomatic from arrhythmia standpoint. A poor historian secondary to severe dementia and marked short term memory loss. He does carry a history of falls in the past. Notes no recent head injuries, undergone cerebral imaging with recent MRI in December 2016 reflecting subacute infarct in the cerebellum, chronic old lacunar infarcts. The patient is unable to add additional history. Son is present in the room but notes no acute history of bleeding, melena or hematochezia. Appetite is generally fair. The patient uses predominantly a wheelchair for ambulation due to gait instability and neuropathy complaints. ALLERGIES: BEE STINGS. MEDICATIONS: Prior to hospitalization were combination of therapies which included clopidogrel 75 mg per day, Aricept 10 mg at bedtime, B12 1000 mcg per day, cholecalciferol 50,000 units weekly, Effexor 75 mg q.p.m., Zyprexa 2.5 mg twice per day, levothyroxine 50 mcg every day, atorvastatin 20 grams p.o. daily, aspirin 81 mg per day. PAST SURGICAL HISTORY: Notable only for known dermatologic procedures and remote tonsillectomy, dental extractions. FAMILY HISTORY: Noncontributory. 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 Tobacco use none. Alcohol use none. PHYSICAL EXAMINATION: VITAL SIGNS: On exam today, heart rates 80, blood pressure is 114/73, O2 saturation is 96% on room air. HEENT: Normocephalic, atraumatic. Nares without discharge. Throat was clear. NECK: Supple without thyromegaly, lymphadenopathy. There is no jugular venous distention at 30 degrees. LUNGS: Notable for mildly diminished breath sounds but are predominantly clear. CARDIOVASCULAR: Irregularly irregular. There is no S3 gallop. ABDOMEN: Soft, nontender. EXTREMITIES: Without cyanosis or clubbing. There is no peripheral edema. There are intact distal pulses. LABORATORY DATA: CT scan of the chest revealed no evidence of pulmonary embolus. Chest x-ray revealed no infiltrate or edema. EKG and monitor on initial presentation revealed atrial fibrillation with elevated ventricular response rate, right bundle branch block configuration. EKG this morning demonstrates atrial fibrillation with intermittent bifascicular heart block, left anterior fascicular block and right bundle branch block. White cell count is 6.9, hemoglobin is 14.4. The patient is on heparin and anticoagulated. Sodium is 139, potassium is 3.8, chloride is 105, bicarbonate 29, BUN 13, creatinine 0.7. Cholesterol is 102, HDL is 42. LDL is 43. TSH is 2.0. IMPRESSION: Complex 81-year-old male with underlying history of progressive dementia, history of past and most recent transient ischemic attack stroke with recent documentation by MRI of cerebellar stroke. He was referred for Holter monitor and on presentation was found to be in atrial fibrillation with rapid ventricular response. He is referred now for further recommendations. Discussed findings in detail with patient and his son. Rates have come under control with low dose beta kateryna. Would not increase further given baseline conduction changes. Would avoid digoxin as treatment. The patient does meet criteria for anticoagulation with elevated CHADS VASc score in the setting of past transient ischemic attack and most recent stroke. Would recommend anticoagulation, though patient certainly has some concerns given history of falls and gait instability. Son notes they have escalated his care at extended care facility. He is now being mobilized with a use a wheelchair and attempting to avoid falls. Would certainly trial anticoagulation with warfarin. This may be bridged as an outpatient with Lovenox. Would continue metoprolol. We will review echocardiogram. Son is aware of potential risks of injury and bleeding with warfarin as well as potential benefits of stroke reduction risk.
[2017-02-01] MEDS ORDERED: ENOXAPARIN 80 MG/0.8 ML SYR SQ SCH (14:00)
--- NOTE | 2017-02-01 14:12 | Psychiatric Consultation ---
Psychiatric Consultation Date of Service: Feb 01, 2017. Consult placed to evaluate psych meds in view of QT prolongation. On admission Aricept, Zyprexa and Effexor were held. See by Dr. Penaloza whom I have spoken with. He does not think that this is a drug induced prolongation, but rate related. That having been said, we should exercise caution in renewing meds that can contribute to this. Since he has dementia with behavioral disturbance , I suggest that [facility] ([facility]) on zyprexa 2.5 mg BID (his OP dose) but continue to hold Effexor and Aricept. Dr. Summers will recommend following EKG's serially. Dr. Pugh, who sees him at [facility], will see him next Sunday and I will alert him to med changes and cardiac issues. No formal consult needed at this time.
[2017-02-01] MEDS ORDERED: OLANZAPINE 2.5 MG TAB PO ONE (14:23)
[2017-02-01] MEDS ORDERED: LPR25 PO (14:31)
[2017-02-01] MEDS ORDERED: LVNIS80 SQ (14:31)
[2017-02-01] MEDS ORDERED: CMD3 PO (14:31)
--- NOTE | 2017-02-01 14:40 | Discharge Instructions ---
Discharge Instructions Date of Service Feb 01, 2017. Admission Reason for Admission: Atrial Fibrillation With Rvr Discharge Discharge Diagnosis / Problem: ATRIAL FIBRILLATION WITH RAPID VENTRICULAR RESPONSE Discharge Goals Goal(s): Diagnostic testing, Therapeutic intervention Activity Recommendations Activity Level: Assistance Required Therapies: Physical Therapy, Occupational Therapy . Additional Information Patient informed of condition: Yes Advance Directives: No (UNKNOWN) DNR: No (PATIENT IS FULL CODE) Level of Care: Skilled Communicable Disease: No Prognosis: Stable Instructions / Follow-Up Instructions / Follow-Up MONITOR HEART RATE AND BLOOD PRESSURE DAILY. CHECK INR DAILY AND ADJUST LOVENOX + COUMADIN ACCORDINGLY. FALL PRECAUTIONS, BLEEDING PRECAUTIONS. CHECK EKG , WITH ATTENTION TO QT INTERVAL AT LEAST EVERY 2 DAYS. PLEASE REFER TO ACCOMPANYING HOSPITAL DISCHARGE SUMMARY FOR FURTHER DETAILS. FOLLOW UP WITH PRIMARY CARE PHYSICIAN DR. AHYS ON Sunday02/06/17 AT 10:45 AM. FOLLOW UP WITH PSYCHIATRIST DR. GARDUNO WITHIN 1 WEEK. FOLLOW UP WITH CLIPMAN DR. REYES IN 2 WEEKS. FOLLOW UP WITH NEUROLOGIST DR. BASSETT SCHEDULED. Current Hospital Diet Patient's current hospital diet: AHA Diet (Heart Healthy), Low Lactose Diet Discharge Diet Recommended Diet: AHA Diet (Heart Healthy), Low Lactose Diet Procedures Procedures Performed: ECHOCARDIOGRAM, CT ANGIOGRAM OF THE CHEST, VENOUS DOPPLER STUDIES Pending Studies Studies pending at discharge: yes List of pending studies: MONITOR HEART RATE AND BLOOD PRESSURE DAILY. CHECK INR DAILY AND ADJUST LOVENOX + COUMADIN ACCORDINGLY. FALL PRECAUTIONS, BLEEDING PRECAUTIONS. CHECK EKG , WITH ATTENTION TO QT INTERVAL AT LEAST EVERY 2 DAYS. PLEASE REFER TO ACCOMPANYING HOSPITAL DISCHARGE SUMMARY FOR FURTHER DETAILS. Physician Orders On Transfer Special Precautions: MONITOR HEART RATE AND BLOOD PRESSURE DAILY. CHECK INR DAILY AND ADJUST LOVENOX + COUMADIN ACCORDINGLY. FALL PRECAUTIONS, BLEEDING PRECAUTIONS. CHECK EKG , WITH ATTENTION TO QT INTERVAL AT LEAST EVERY 2 DAYS. PLEASE REFER TO ACCOMPANYING HOSPITAL DISCHARGE SUMMARY FOR FURTHER DETAILS. FOLLOW UP WITH PRIMARY CARE PHYSICIAN DR. HAYS ON Sunday02/06/17 AT 10:45 AM. FOLLOW UP WITH PSYCHIATRIST DR. GARDUNO WITHIN 1 WEEK. FOLLOW UP WITH [facility]IP[facility] DR. REYES IN 2 WEEKS. FOLLOW UP WITH NEUROLOGIST DR. BASSETT SCHEDULED. Laboratory Results Lipid Panel Test 02/01/17 06:58 Range/Units Triglycerides Level 83 0-150 mg/dl Cholesterol Level 102 0-200 mg/dl HDL Cholesterol 42 mg/dl Cholesterol/HDL Ratio 2.4 LDL Cholesterol, Calculated 43 mg/dl Medical Emergencies . Who to Call and When: Medical Emergencies: If at any time you feel your situation is an emergency, please call 911 immediately. . Non-Emergent Contact Non-Emergency issues call your: Primary Care Provider, Russian Teacher, Neurologist Call Non-Emergent contact if: you have a fever, you have any medication questions . . "Provider Documentation" section prepared by Juve Torres. . Core Measure Problem Core Measures: None
--- NOTE | 2017-02-01 14:47 | Discharge Summary ---
Discharge Summary Date of Service Feb 01, 2017. Discharge Summary Admission Date: Jan 31, 2017 at 16:48 Discharge Date: Feb 01, 2017 Discharge Disposition: custodial facility Principal Diagnosis: NEW ONSET ATRIAL FIBRILLATION WITH RVR Secondary Diagnoses/Problems: Please refer to hospital course below. Procedures: CHEST ONE VIEW PORTABLE CLINICAL HISTORY: Chest pain. COMPARISON STUDY: Chest radiograph September 29, 2016. FINDINGS: There may be underlying emphysema. No pneumothorax or pleural effusion is present. There is no consolidation to suggest pneumonia. Cardiomediastinal silhouette is normal. Pulmonary vascularity is normal. IMPRESSION: 1. No acute cardiopulmonary findings. 2. Possible emphysema. BILATERAL LOWER EXTREMITY VENOUS DOPPLER CLINICAL HISTORY: Elevated d-dimer. Atrial fibrillation with rapid ventricular response. COMPARISON STUDY: No previous studies for comparison. TECHNIQUE: Sonography of the deep venous system of the bilateral lower extremities was performed. Compression and augmentation were evaluated. FINDINGS: The bilateral common femoral, superficial femoral and popliteal veins were compressible. Augmentation was normal. Flow was shown within the deep calf vessels. IMPRESSION: No evidence of deep venous thrombus within the bilateral lower extremities. (CHEST FOR PE) ANGIO WITH CT DOSE: 341.15 mGy.cm HISTORY: Chest pain dyspnea TECHNIQUE: Multiaxial CT images of the chest were performed following the intravenous administration of contrast to evaluate the pulmonary arteries. Maximal intensity projection images were also obtained. A dose lowering technique was utilized adhering to the principles of ALARA. COMPARISON STUDY: None. FINDINGS: Thoracic aorta shows minimal atherosclerotic change. Pulmonary vasculature enhances appropriately. No major filling defect is appreciated. There are vessels of the lung bases are not well evaluated due to respiratory motion. Emphysematous changes noted bilaterally. Bibasilar interstitial prominence is noted. There are no consolidative infiltrates. There is a small hiatal hernia. IMPRESSION: 1. Study is negative for a central or main pulmonary embolus 2. The pulmonary vessels in the lung bases are not well evaluated due to respiratory and somatic motion. 3. Emphysematous change. 4. Bibasilar interstitial change possibly atelectatic and/or inflammatory in nature ECHO: * -- Conclusions -- * The left ventricle is normal in size. * There is borderline concentric left ventricular hypertrophy. * The left ventricular wall motion is normal. * Septal motion is consistent with conduction abnormality. * Left ventricular systolic function is normal. * Ejection Fraction = 55-60%. * The left atrium is borderline dilated. * The right atrium is mildly dilated. * Aortic valve sclerosis moderate, without significant aortic valvular stenosis. * Trace aortic regurgitation. * There is moderate mitral regurgitation. * There is mild tricuspid regurgitation. Consultations: AUTOBODY TECHNICIAN DR. PENALOZA, PSYCHIATRIST PAOLA SWANN Pending Studies/Follow-Up: MONITOR HEART RATE AND BLOOD PRESSURE DAILY. CHECK INR DAILY AND ADJUST LOVENOX + COUMADIN ACCORDINGLY. FALL PRECAUTIONS, BLEEDING PRECAUTIONS. CHECK EKG , WITH ATTENTION TO QT INTERVAL AT LEAST EVERY 2 DAYS. PLEASE REFER TO HOSPITAL COURSE BELOW FOR FURTHER DETAILS. FOLLOW UP WITH PRIMARY CARE PHYSICIAN DR. HAYS ON Sunday02/06/17 AT 10:45 AM. FOLLOW UP WITH PSYCHIATRIST DR. GARDUNO WITHIN 1 WEEK. FOLLOW UP WITH AUTOBODY TECHNICIAN DR. COOPER IN 2 WEEKS. FOLLOW UP WITH NEUROLOGIST DR. SHAW SCHEDULED. Medication Reconciliation New Medications: Enoxaparin (Lovenox) 80 Mg/0.8 Ml Inj 80 MG SQ Q12H for 7 Days, #14 UNITS Metoprolol Tartrate (Lopressor) 25 Mg Tab 25 MG PO BID for 30 Days, #60 TAB Warfarin Sod (Coumadin) 3 Mg Tab 3 MG PO DAILY@16 for 15 Days, #15 TAB Continued Medications: Acetaminophen Tab (Tylenol) 325 Mg Tab 650 MG PO Q4H PRN for Pain or Fever, TAB NEEDED FOR PAIN OR FEVER 100.4 F OR GREATER. DO NOT EXCEED 3000 MH/24 HOURS Atorvastatin (Lipitor) 20 Mg Tab 20 MG PO HS, TAB Cyanocobalamin (Vitamin B12) 1,000 Mcg Tab 1000 MCG PO DAILY Epinephrine (Epipen) 0.3 Mg/0.3 Ml Inj 0.3 MG IM Q24H PRN for Bee Sting(s), BOX Ergocalciferol (Vitamin D 90950 Unit) 50,000 Unit Cap 41795 INTER.UNIT PO WK, CAP TAKE THIS MEDICATION EVERY SUNDAY Levothyroxine Sodium (Synthroid) 50 Mcg Tab 50 MCG PO DAILY, TAB Olanzapine (Zyprexa) 2.5 Mg Tab 2.5 MG PO AMHS, TAB Polyethylene Glycol 3350 (Miralax) 1 Pow Pow 17 GM PO QAM, GM Sennosides (Senna Lax) 8.6 Mg Tab 17.2 MG PO QAM Discontinued Medications: Aspirin (Aspirin Ec) 81 Mg Tab 81 MG PO DAILY Clopidogrel (Plavix) 75 Mg Tab 75 MG PO DAILY, TAB Donepezil Hydrochloride (Donepezil Hcl) 10 Mg Tab 10 MG PO HS Venlafaxine Hcl (Effexor Xr) 75 Mg Cap 75 MG PO QAM, CAP Admission Information HPI (per Admitting provider): 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 , with past medical hx of CVA , hyperlipidemia , Hypothyroidism , depression Has been following with Neurology for dementia, there is concern for TIA /CVA , pt was referred to Cardiology office for Holter monitor Had office visit with Cardiology Dr Cooper at [facility] , pt noted to be tachycardic with rapid irregular rhythm , EKG in office showed rapid afib RVR ~130 pt is a very poor historian due to Dementia , does not recall event of having a stroke on Record -pt is at [facility] , can not tell me whether he is at the Assisted Living or at the SNF denies of any complain of palpitation , no SOB or chest discomfort not sure why he in Hospital and hooked up to all the IV medications pt has no significant past cardiac history. No prior hx of arrhythmia or Afib Physical Exam (per Admitting): General Appearance: no apparent distress Head: normocephalic, atraumatic Eyes: PERRL, EOMI, sclerae normal Neck: no JVD, no carotid bruits, trachea midline Respiratory/Chest: lungs clear, normal breath sounds, no respiratory distress Cardiovascular: + irregularly irregular Abdomen/GI: non tender, soft Neurologic/Psych: no motor/sensory deficits, alert, + pertinent finding ( demenita , forgetfulness ) Hospital Course 81 year old male with history of Dementia, TIA/CVA, HLD, Hypothyroidism, Depression presenting with a fib in RVR. NEW ONSET ATRIAL FIBRILLATION WITH RVR prior hx of CVA , was seen at Cardiology office at [facility] for Holter monitor placement -recommended by Neurology pt found to be in rapid Afib RVR -pt was sent to [facility] ED -- HR now controlled, still in A fib Cardizem drip discontinued--> now on Metoprolol 25mg po BID Heparin drip continued -- echo: Conclusions -- * The left ventricle is normal in size. * There is borderline concentric left ventricular hypertrophy. * The left ventricular wall motion is normal. * Septal motion is consistent with conduction abnormality. * Left ventricular systolic function is normal. * Ejection Fraction = 55-60%. * The left atrium is borderline dilated. * The right atrium is mildly dilated. * Aortic valve sclerosis moderate, without significant aortic valvular stenosis. * Trace aortic regurgitation. * There is moderate mitral regurgitation. * There is mild tricuspid regurgitation. -- Cardiology consulted, Dr. Penaloza, recommend to continue Metoprolol BID and continue with anticoagulation as outpatient given history of CVA/TIAs recommendations: Metoprolol 25mg BID Coumadin with Lovenox bridge, check INR daily and adjust Lovenox + Coumadin accordingly (goal INR 2-3) -- fall precautions ff up with Or Director in 2 weeks PROLONG QTc: Qtc > 500--> 495 discussed with Psychiatry [facility] Swann, who discussed case with Dr. Garduno they recommend to hold Effexor and Aricept for now, continue with Zyprexa monitor QTC with EKG at least every [address] Garduno to follow patient in [facility] HX OF TIA/CVA -- no new deficits -- discussed with Neurologist Dr. Chen since patient is now going to be on Lovenox + Coumadin for anticoagulation, he recommends to discontinue Aspirin and Plavix -- continue outpatient ff up with Neurologist Dr. Shaw DEMENTIA, HX OF DEPRESSION management as noted above HYPOTHYROIDISM : cont Levothyroxine 50 mcg daily TSH -wnl HYPERLIPIDEMIA LDL 43 cont statin ELEVATED D DIMER : d dimer 1150 Doppler US negative for DVT CT Ango negative for PE -- continue age appropriate cancer screening as outpatient ABNORMAL CT CHEST FINDING -- CT chest showing emphysematous changes per patient's son, patient did not smoke please refer to procedure section above for full CT report -- respiratory status stable -- ff up as outpatient DISPOSITION: d/c to [facility] follow up with PCP Dr. Hays in 1 week follow up with Psychiatrist Dr. Garduno in 1 week ff up with Or Director Dr. Coopre in 2 weeks ff up with Neurologist Dr. Shaw as scheduled Total time spent on discharge = 60 minutes This includes examination of the patient, discharge planning, medication reconciliation, and communication with other providers. Discharge Instructions Discharge Instructions Date of Service Feb 01, 2017. Admission Reason for Admission: Atrial Fibrillation With Rvr Discharge Discharge Diagnosis / Problem: ATRIAL FIBRILLATION WITH RAPID VENTRICULAR RESPONSE Discharge Goals Goal(s): Diagnostic testing, Therapeutic intervention Activity Recommendations Activity Level: Assistance Required Therapies: Physical Therapy, Occupational Therapy . Additional Information Patient informed of condition: Yes Advance Directives: No (UNKNOWN) DNR: No (PATIENT IS FULL CODE) Level of Care: Skilled Communicable Disease: No Prognosis: Stable Instructions / Follow-Up Instructions / Follow-Up MONITOR HEART RATE AND BLOOD PRESSURE DAILY. CHECK INR DAILY AND ADJUST LOVENOX + COUMADIN ACCORDINGLY. FALL PRECAUTIONS, BLEEDING PRECAUTIONS. CHECK EKG , WITH ATTENTION TO QT INTERVAL AT LEAST EVERY 2 DAYS. PLEASE REFER TO ACCOMPANYING HOSPITAL DISCHARGE SUMMARY FOR FURTHER DETAILS. FOLLOW UP WITH PRIMARY CARE PHYSICIAN DR. HAYS ON Sunday02/06/17 AT 10:45 AM. FOLLOW UP WITH PSYCHIATRIST DR. GARDUNO WITHIN 1 WEEK. FOLLOW UP WITH AUTOBODY TECHNICIAN DR. COOPER IN 2 WEEKS. FOLLOW UP WITH NEUROLOGIST DR. SHAW SCHEDULED. Current Hospital Diet Patient's current hospital diet: AHA Diet (Heart Healthy), Low Lactose Diet Discharge Diet Recommended Diet: AHA Diet (Heart Healthy), Low Lactose Diet Procedures Procedures Performed: ECHOCARDIOGRAM, CT ANGIOGRAM OF THE CHEST, VENOUS DOPPLER STUDIES Pending Studies Studies pending at discharge: yes List of pending studies: MONITOR HEART RATE AND BLOOD PRESSURE DAILY. CHECK INR DAILY AND ADJUST LOVENOX + COUMADIN ACCORDINGLY. FALL PRECAUTIONS, BLEEDING PRECAUTIONS. CHECK EKG , WITH ATTENTION TO QT INTERVAL AT LEAST EVERY 2 DAYS. PLEASE REFER TO ACCOMPANYING HOSPITAL DISCHARGE SUMMARY FOR FURTHER DETAILS. Physician Orders On Transfer Special Precautions: MONITOR HEART RATE AND BLOOD PRESSURE DAILY. CHECK INR DAILY AND ADJUST LOVENOX + COUMADIN ACCORDINGLY. FALL PRECAUTIONS, BLEEDING PRECAUTIONS. CHECK EKG , WITH ATTENTION TO QT INTERVAL AT LEAST EVERY 2 DAYS. PLEASE REFER TO ACCOMPANYING HOSPITAL DISCHARGE SUMMARY FOR FURTHER DETAILS. FOLLOW UP WITH PRIMARY CARE PHYSICIAN DR. HAYS ON Sunday02/06/17 AT 10:45 AM. FOLLOW UP WITH PSYCHIATRIST DR. GARDUNO WITHIN 1 WEEK. FOLLOW UP WITH AUTOBODY TECHNICIAN DR. COOPER IN 2 WEEKS. FOLLOW UP WITH NEUROLOGIST DR. SHAW SCHEDULED.
[2017-02-01 14:50] VITALS: BP 98/64; PULSE 87; TEMP 36.6; O2SAT 96
[2017-02-01] MEDS ORDERED: WARFARIN SOD 3 MG TAB PO SCH (16:00)
[2017-02-01] MEDS ORDERED: OLANZAPINE 2.5 MG TAB PO SCH (21:00)
== END 2017-02-01 15:10 | DRG 310 ==
LOC: EDBD 15:23 → C.EDA 15:24 → C.2T 16:48 → ENRESERV 16:56
PROVIDERS: ADMIT Hospitalist; ATTEND Internal Medicine
DX: I48.91 Unspecified atrial fibrillation (principal); I45.81 Long QT syndrome; E78.00 Pure hypercholesterolemia, unspecified; E03.9 Hypothyroidism, unspecified; F03.90 Unspecified dementia, unspecified severity, without behavioral disturbance, psychotic disturbance, mood disturbance, and anxiety; Z79.02 Long term (current) use of antithrombotics/antiplatelets; Z79.82 Long term (current) use of aspirin; Z79.899 Other long term (current) drug therapy; Z86.73 Personal history of transient ischemic attack (TIA), and cerebral infarction without residual deficits

== ENCOUNTER 2017-10-08 11:39 | Observation (INO) | payer BC, OTHER ==
[~2017-10-08] VITALS: Ht 180.3 cm; Wt 79.0 kg
[~2017-10-08 11:39] MED LIST changes: +ACET-1693 PO; +ATOR-22 PO; +CMD3 PO; +CYAN100020 PO; -CYAN100074 SQ; +EPP3/2 IM; -ESCI10TA17 PO; -LACT3000 PO; +LEVO50TA PO; +LPR25 PO; +LVNIS80 SQ; +OLAN1TAB7 PO; +POLY335019 PO; -SENN-65 PO; +SENN1TAB80 PO
[2017-10-08] MEDS ORDERED: SODIUM CHLORIDE 0.9% 1000ML 1,000 ML IV STA (11:42)
--- NOTE | 2017-10-08 12:20 | DIAGNOSTIC IMAGING REPORT ---
CHEST ONE VIEW PORTABLE CLINICAL HISTORY: EVALUATE WEAKNESS dyspnea COMPARISON STUDY: 01/31/2017 FINDINGS: Small patchy parenchymal infiltrate left base. Lungs otherwise are clear. Mild cardiomegaly. Right hemidiaphragm is smooth. IMPRESSION: Small patchy parenchymal infiltrate left base. Mild cardia megaly. The above report was generated using voice recognition software. It may contain grammatical, syntax or spelling errors. Electronically signed by: Karan Wilson M.D. 10/08/2017 12:18 PM Dictated Date/Time: 10/08/2017 12:18 PM
[2017-10-08 12:32] LABS: INR 2.6 (0.9-1.1); PTT PATIENT 27.5 SECONDS (21.0-31.0)
[2017-10-08 12:48] LABS: ALBUMIN 3.5 gm/dl (3.4-5.0); ALT/SGPT 20 U/L (12-78); AST/SGOT 25 U/L (15-37); BLOOD UREA NITROGEN 17 mg/dl (7-18); CALCIUM 8.7 mg/dl (8.5-10.1); CARBON DIOXIDE 27 mmol/L (21-32); CREATININE 0.86 mg/dl (0.60-1.40); GLUCOSE 81 mg/dl (70-99); POTASSIUM 3.9 mmol/L (3.5-5.1); SODIUM 139 mmol/L (136-145)
[2017-10-08 12:54] LABS: ALKALINE PHOSPHATASE 77 U/L (45-117); CKMB 5.9 ng/ml (0.5-3.6)
[2017-10-08 13:32] LABS: BASO % 0.3 %; BASO ABS # 0.02 K/uL (0-0.2); EOS % 2.5 %; EOS ABS # 0.17 K/uL (0-0.5); HEMATOCRIT 48.7 % (42-52); HEMOGLOBIN 16.6 g/dL (14.0-18.0); IG# 0.02 K/uL (0.00-0.02); LYMPH % 36.9 %; LYMPH ABS # 2.53 K/uL (1.2-3.4); MEAN CELL VOLUME 93.1 fL (80-100); MEAN CORPUSCULAR HEMOGLOBIN 31.7 pg (25-34); MEAN CORPUSCULAR HGB CONC 34.1 g/dl (32-36); MEAN PLATELET VOLUME 12.2 fL (7.4-10.4); MONO % 7.4 %; MONO ABS # 0.51 K/uL (0.11-0.59); NEUT % 52.6 %; PLATELET COUNT 141 K/uL (130-400); RED CELL DISTRIBUTION WIDTH CV 13.9 % (11.5-14.5); RED CELL DISTRIBUTION WIDTH SD 47.4 fL (36.4-46.3); WHITE BLOOD COUNT 6.85 K/uL (4.8-10.8)
[2017-10-08] MEDS ORDERED: ACETAMINOPHEN 325 MG TAB PO PRN (15:45)
[2017-10-08] MEDS ORDERED: CYAN100073 PO (15:52)
[2017-10-08] MEDS ORDERED: ATOR-54 PO (15:52)
[2017-10-08] MEDS ORDERED: CYM30 PO (15:52)
[2017-10-08] MEDS ORDERED: LPR25 PO (15:52)
[2017-10-08] MEDS ORDERED: DONE10TA12 PO (15:52)
[2017-10-08] MEDS ORDERED: CMD3 PO (15:52)
[2017-10-08] MEDS ORDERED: OLAN-80 PO (15:52)
[2017-10-08] MEDS ORDERED: DULO60CA44 PO (15:52)
[2017-10-08] MEDS ORDERED: CMD4 PO (15:52)
[2017-10-08] MEDS ORDERED: MRLP17X PO (15:52)
[2017-10-08] MEDS ORDERED: ACET325S7 PO (15:52)
[2017-10-08] MEDS ORDERED: EPP3/2 IM (15:52)
[2017-10-08] MEDS ORDERED: SENN1TAB80 PO (15:52)
[2017-10-08] MEDS ORDERED: CHOL1TAB63 PO (16:04)
[2017-10-08] MEDS ORDERED: [UNRECOGNIZED DRUG - CODE] EXT (16:04)
[2017-10-08] MEDS ORDERED: ACET-1311 PO (16:07)
--- NOTE | 2017-10-08 16:08 | History and Physical ---
History & Physical Date & Time of Service: Oct 08, 2017 at 16:07 Chief Complaint: LOWELL Primary Care Physician: Heladio Webb III, M.D. History of Present Illness Source: patient, clinic records, hospital records This is an 82-year-old male from [facility] with a PMH of vascular dementia , chronic A. fib and h/o right cerebellar CVA (on Coumadin), HTN, HLD, hypothyroidism and other medical problems listed below who presents from neurology clinic after an episode of symptomatic bradycardia. Patient is a poor historian secondary to dementia, so history obtained from chart review. Patient was at neurology clinic earlier today seeing Dr. Shaw for follow-up of vascular dementia. Was found to be bradycardic with a heart rate of 40 but repeat HR was 28. Patient was reportedly sleepy but arousable, oriented to person and without complaints. In route to the hospital, EMS repeated vitals and heart rate was found to be in the 60s-70s and has remained in the 60s in the ER. Currently, patient denies any headache, lightheadedness, visual changes, visual changes, chest pain, palpitations, shortness of breath, abdominal pain, nausea, vomiting, bowel/bladder changes or LE swelling. Is alert and oriented to self but not to situation. Is a DNR and son, Serge, is POA. Past Medical/Surgical History Medical Problems: (1) Atrial fibrillation Status: Chronic (2) H/O: CVA (cerebrovascular accident) Status: Resolved (3) HLD (hyperlipidemia) Status: Chronic (4) HTN (hypertension) Status: Chronic (5) Hypothyroidism Status: Chronic (6) MDD (major depressive disorder) Status: Chronic (7) Vascular dementia Status: Chronic Family History No pertinent family history Social History Smoking Status: Never Smoker Marital Status: Occupational Status: retired Allergies Coded Allergies: Lactose Intolerance (GI) (Verified Allergy, Intermediate, PT states lactose intolerant, 10/08/17) BEE STING (Verified Allergy, Unknown, UNKNOWN, 10/08/17) Uncoded Allergies: NOVACINE (Allergy, Unknown, 05/15/02) Home Medications Scheduled Atorvastatin (Lipitor), 20 MG PO DAILY Cholecalciferol (Vitamin D3), 1 TAB PO Sunday Cyanocobalamin (B12), 1 TAB PO DAILY Donepezil Hydrochloride (Aricept), 1 TAB PO HS Duloxetine HCl (Duloxetine HCl), 1 TAB PO QPM Duloxetine Hcl (Cymbalta), 1 CAP PO QAM Levothyroxine Sodium (Synthroid), 50 MCG PO DAILY Metoprolol Tartrate (Lopressor), 25 MG PO BID Nystatin-Triamcinolone (Nystatin/Triamcinolon... 051246-4.1 Unit/gm-%), 1 APPLN EXT BID Olanzapine (Zyprexa), 1 TAB PO BID Polyethylene (Miralax), 17 GM PO DAILY Warfarin Sod (Coumadin), 2 TABS PO Sunday Warfarin Sod (Coumadin), 1 TAB PO [id number] Scheduled PRN Acetaminophen (Tylenol), 650 MG PO Q6H PRN for Pain or Fever Epinephrine (Epipen), 0.3 MG IM UD PRN for Allergic Reaction Sennosides (Senna Lax), 2 TAB PO BID PRN for Constipation Physical Exam Vital Signs Date Time Temp Pulse Resp B/P (MAP) Pulse Ox O2 Delivery O2 Flow Rate FiO2 10/08/17 15:17 81 17 107/74 97 Room Air 10/08/17 13:39 60 18 105/61 97 Room Air 10/08/17 12:15 74 10/08/17 11:45 98 Room Air 10/08/17 11:45 36.9 82 16 116/84 98 Room Air 10/08/17 11:45 98 Room Air 10/08/17 11:45 98 Room Air General Appearance: WD/WN, no apparent distress, + pertinent finding ( pleasantly confused ) Head: normocephalic, atraumatic Eyes: normal inspection, PERRL, sclerae normal ENT: normal ENT inspection, hearing grossly normal, pharynx normal (moist mucous membranes ) Neck: supple, thyroid normal, trachea midline Respiratory/Chest: chest non-tender, lungs clear, no respiratory distress, no accessory muscle use, + decreased breath sounds Cardiovascular: no murmur, normal peripheral pulses, + irregularly irregular Abdomen/GI: non tender, soft, no organomegaly Back: normal inspection Extremities/Musculoskelatal: normal inspection, no calf tenderness, no pedal edema Neurologic/Psych: no motor/sensory deficits, alert (oriented to self only ), normal mood/affect Skin: normal color, warm/dry Diagnostics Laboratory Results Results Past 24 Hours Test 10/08/17 12:10 10/08/17 12:55 10/08/17 13:45 Range/Units Prothrombin Time 27.2 9.0-12.0 SECONDS Prothromb Time International Ratio 2.6 0.9-1.1 Activated Partial Thromboplast Time 27.5 21.0-31.0 SECONDS Partial Thromboplastin Ratio 1.1 Sodium Level 139 136-145 mmol/L Potassium Level 3.9 3.5-5.1 mmol/L Chloride Level 105 98-107 mmol/L Carbon Dioxide Level 27 21-32 mmol/L Anion Gap 8.0 3-11 mmol/L Blood Urea Nitrogen 17 7-18 mg/dl Creatinine 0.86 0.60-1.40 mg/dl Est Creatinine Clear Calc Drug Dose 70.7 ml/min Estimated GFR () 94.9 Estimated GFR (Non- 81.9 BUN/Creatinine Ratio 19.3 10-20 Random Glucose 81 70-99 mg/dl Calcium Level 8.7 8.5-10.1 mg/dl Magnesium Level 2.3 1.8-2.4 mg/dl Total Bilirubin 0.9 0.2-1 mg/dl Direct Bilirubin 0-0.2 mg/dl Aspartate Amino Transf (AST/SGOT) 25 15-37 U/L Alanine Aminotransferase (ALT/SGPT) 20 12-78 U/L Alkaline Phosphatase 77 45-117 U/L Total Creatine Kinase 315 39-308 U/L Creatine Kinase MB 5.9 0.5-3.6 ng/ml Creatine Kinase MB Ratio 1.9 0-3.0 Troponin I < 0.015 0-0.045 ng/ml Total Protein 7.0 6.4-8.2 gm/dl Albumin 3.5 3.4-5.0 gm/dl Thyroid Stimulating Hormone (TSH) 2.200 0.300-4.500 uIu/ml Chemistry Specimen Hemolysis White Blood Count 6.85 4.8-10.8 K/uL Red Blood Count 5.23 4.7-6.1 M/uL Hemoglobin 16.6 14.0-18.0 g/dL Hematocrit 48.7 42-52 % Mean Corpuscular Volume 93.1 80-100 fL Mean Corpuscular Hemoglobin 31.7 25-34 pg Mean Corpuscular Hemoglobin Concent 34.1 32-36 g/dl Platelet Count 141 130-400 K/uL Mean Platelet Volume 12.2 7.4-10.4 fL Neutrophils (%) (Auto) 52.6 % Lymphocytes (%) (Auto) 36.9 % Monocytes (%) (Auto) 7.4 % Eosinophils (%) (Auto) 2.5 % Basophils (%) (Auto) 0.3 % Neutrophils # (Auto) 3.60 1.4-6.5 K/uL Lymphocytes # (Auto) 2.53 1.2-3.4 K/uL Monocytes # (Auto) 0.51 0.11-0.59 K/uL Eosinophils # (Auto) 0.17 0-0.5 K/uL Basophils # (Auto) 0.02 0-0.2 K/uL RDW Standard Deviation 47.4 36.4-46.3 fL RDW Coefficient of Variation 13.9 11.5-14.5 % Immature Granulocyte % (Auto) 0.3 % Immature Granulocyte # (Auto) 0.02 0.00-0.02 K/uL Urine Color DK YELLOW Urine Appearance CLEAR CLEAR Urine pH 5.0 4.5-7.5 Urine Specific [place] 1.027 1.000-1.030 Urine Protein NEG NEG Urine Glucose (UA) NEG NEG Urine Ketones TRACE NEG Urine Occult Blood NEG NEG Urine Nitrite NEG NEG Urine Bilirubin NEG NEG Urine Urobilinogen NEG NEG Urine Leukocyte Esterase TRACE NEG Urine WBC (Auto) 0 0-5 /hpf Urine RBC (Auto) 0-4 0-4 /hpf Urine Hyaline Casts (Auto) 0 0-5 /lpf Urine Epithelial Cells (Auto) 0-5 0-5 /lpf Urine Bacteria (Auto) NEG NEG Diagnostic Radiology CXR: IMPRESSION: Small patchy parenchymal infiltrate left base. Mild cardia megaly. Impression Assessment and Plan This is an 82-year-old male with a PMH of vascular dementia, chronic A. fib and h/o right cerebellar CVA (on Coumadin), HTN, HLD, hypothyroidism and other medical problems listed below who presents from neurology clinic after an episode of symptomatic bradycardia. Symptomatic bradycardia -Episode occurred at neurology clinic -HR reportedly 28-40 bpm -Has since resolved--HR now 70s-90s -EKG with A Fib @ 68 bpm, RBBB -Observe overnight on telemetry -Hold Aricept and Lopressor -Consider cardio consult bradycardia recurs -External pacer at bedside Chronic A Fib -Beta kateryna held in setting of bradycardia -Continue coumadin -- INR 2.6 Vascular dementia -With behavioral component -Continue Zyprexa -Hold aricept for now Mood disorder -Continue Cymbalta HTN -Normotensive -Beta kateryna held for now HLD -Cont statin Hypothyroidism -Cont levothyroxine DVT Ppx: Continue coumadin Code status: DNR per chart review, discussion with POA (son, Serge) PCP: Jon Dispo: Observation telemetry. Discharge planning ordered for return to [facility] Patient seen in collaboration with Dr. Nguyễn. Please see addendum. Attending Note: Patient is seen and examined at bedside. I personally reviewed the chart, labs, Imaging and EKG. Patient is an 82 yr male who presents for evaluation of transient symptomatic bradycardia. Patient is currently asymptomatic during my encounter and denies any symptoms although difficult to asses given history of vascular dementia. Patient has history of atrial fibrillation and is on beta kateryna. He is also on Aricept for dementia which could cause AV block and bradycardia. Agree with holding Beta kateryna and Aricept. On exam patient irregularly irregular heart rate but is rate controlled. His lungs has decreased breath sounds and patient denies any respiratory symptoms although CXR showed small patchy parenchymal infiltrate left base but patient has no obvious signs of infection clinically. Will not start on any antibiotics. Patient will be monitored in Telemetry unit. Needs to rule out Tachybrady syndrome and may need adjustment of beta kateryna dosage. Discussed with patient' s son who confirms that patient is DNI/DNR but is OK with medications of any surgical procedure if needed as patient's quality of life is good per patient's son. Will keep Pacemaker pads at bedside. INR is in therapeutic range. I personally reviewed the record. Patient is interviewed and examined at bedside. Patient's care is coordinated with Stephanie Guerra PA-C. Please refer to the documentation above for details of patient's presentation and for discussion of other issues. Resuscitation Status VTE Prophylaxis Will order VTE Prophylaxis: Yes
[2017-10-08] MEDS ORDERED: EPINEPHRINE ADULT AUTO-INJECT 0.3 MG SYR IM PRN (16:15)
[2017-10-08] MEDS ORDERED: IV FLUIDS COMPLETED PRN (16:30)
[2017-10-08 16:54] VITALS: BP 119/80; PULSE 78; TEMP 36.5; O2SAT 100; Ht 180.3 cm; Wt 79.0 kg
--- NOTE | 2017-10-08 18:19 | EMERGENCY ROOM VISIT NOTE ---
History Report prepared by Elham: Aundrea Wright Under the Supervision of: Dr. Heladio De Paz M.D. First contact with patient: 11:41 Chief Complaint: BRADYCARDIA Stated Complaint: LOWELL History of Present Illness The patient is an 82 year old male who presents to the Emergency Room with complaints of an episode of bradycardia occurring prior to arrival. Per nursing staff, the patient was at [facility] when he had an episode of his heart rate dropping down into the 20s. They report that the patient complained of feeling tired and weak at that time. They report that EMS said his heart rate stayed in the 60s and 70s on the way here. The patient states that he still feels like he did in the office. He notes that he has a history of atrial fibrillation. The patient denies dizziness. Pt denies LOC, headache, fevers, chills, diaphoresis, visual changes, neck pain , chest pain, breathing difficulties, nausea, vomiting, abdominal pain, back pain, melena, hematochezia, urinary symptoms, numbness, lymphadenopathy, rash, or other complaints. Source of History: patient Onset: prior to arrival Position: other (generalized) Quality: other (bradycardia) Timing: other (episode) Associated Symptoms: + fatigue, + weakness Note: The patient denies dizziness. Review of Systems See HPI for pertinent positives and negatives. A total of ten systems were reviewed and were otherwise negative. Past Medical & Surgical Medical Problems: (1) Atrial fibrillation (2) H/O: CVA (cerebrovascular accident) (3) HLD (hyperlipidemia) (4) HTN (hypertension) (5) Hypothyroidism (6) MDD (major depressive disorder) (7) Vascular dementia Family History No pertinent family history Social History Smoking Status: Unknown if Ever Smoked Marital Status: Housing Status: lives with family Occupation Status: retired Current/Historical Medications Scheduled Atorvastatin (Lipitor), 20 MG PO DAILY Cholecalciferol (Vitamin D3), 1 TAB PO Sunday Cyanocobalamin (B12), 1 TAB PO DAILY Donepezil Hydrochloride (Aricept), 1 TAB PO HS Duloxetine HCl (Duloxetine HCl), 1 TAB PO QPM Duloxetine Hcl (Cymbalta), 1 CAP PO QAM Levothyroxine Sodium (Synthroid), 50 MCG PO DAILY Metoprolol Tartrate (Lopressor), 25 MG PO BID Nystatin-Triamcinolone (Nystatin/Triamcinolon... 126344-1.1 Unit/gm-%), 1 APPLN EXT BID Olanzapine (Zyprexa), 1 TAB PO BID Polyethylene (Miralax), 17 GM PO DAILY Warfarin Sod (Coumadin), 2 TABS PO Sunday Warfarin Sod (Coumadin), 1 TAB PO [id number] Scheduled PRN Acetaminophen (Tylenol), 650 MG PO Q6H PRN for Pain or Fever Epinephrine (Epipen), 0.3 MG IM UD PRN for Allergic Reaction Sennosides (Senna Lax), 2 TAB PO BID PRN for Constipation Allergies Coded Allergies: Lactose Intolerance (GI) (Verified Allergy, Intermediate, PT states lactose intolerant, 10/08/17) BEE STING (Verified Allergy, Unknown, UNKNOWN, 10/08/17) Uncoded Allergies: NOVACINE (Allergy, Unknown, 05/15/02) Physical Exam Vital Signs Date Time Temp Pulse Resp B/P (MAP) Pulse Ox O2 Delivery O2 Flow Rate FiO2 10/08/17 15:17 81 17 107/74 97 Room Air 10/08/17 13:39 60 18 105/61 97 Room Air 10/08/17 12:15 74 10/08/17 11:45 98 Room Air 10/08/17 11:45 36.9 82 16 116/84 98 Room Air 10/08/17 11:45 98 Room Air 10/08/17 11:45 98 Room Air Physical Exam GENERAL: Awake, alert, well-appearing, in no distress HENT: Normocephalic, atraumatic. Oropharynx unremarkable. EYES: Normal conjunctiva. Sclera non-icteric. NECK: Supple. No nuchal rigidity. FROM. No masses. RESPIRATORY: Clear to auscultation. No wheezes. No rales. Normal respiratory effort. CARDIAC: Normal rate. Normal rhythm. No murmurs. No rubs. Extremities warm and well perfused. Pulses equal. No JVD. GI: Soft, non-distended. No tenderness to palpation. No rebound or guarding. No masses. RECTAL: Deferred. MUSCULOSKELETAL: Atraumatic. Chest examination reveals no tenderness. No joint edema. LOWER EXTREMITIES: Calves are equal size bilaterally and non-tender. Trace lower extremity edema. No discoloration. NEURO: Normal sensorium. No sensory or motor deficits noted. SKIN: No rash or jaundice noted. Medical Decision & Procedures ER Provider Diagnostic Interpretation: Radiology results as stated below per my review and radiologist interpretation: CHEST ONE VIEW PORTABLE CLINICAL HISTORY: EVALUATE WEAKNESS dyspnea COMPARISON STUDY: 01/31/2017 FINDINGS: Small patchy parenchymal infiltrate left base. Lungs otherwise are clear. Mild cardiomegaly. Right hemidiaphragm is smooth. IMPRESSION: Small patchy parenchymal infiltrate left base. Mild cardia megaly. The above report was generated using voice recognition software. It may contain grammatical, syntax or spelling errors. Electronically signed by: Karan Wilson M.D. 10/08/2017 12:18 PM Dictated Date/Time: 10/08/2017 12:18 PM Laboratory Results 10/08/17 12:55 Red Blood Count 5.23, Mean Corpuscular Volume 93.1, Mean Corpuscular Hemoglobin 31.7, Mean Corpuscular Hemoglobin Concent 34.1, Mean Platelet Volume 12.2, Neutrophils (%) (Auto) 52.6, Lymphocytes (%) (Auto) 36.9, Monocytes (%) (Auto) 7.4, Eosinophils (%) (Auto) 2.5, Basophils (%) (Auto) 0.3, Neutrophils # (Auto) 3.60, Lymphocytes # (Auto) 2.53, Monocytes # (Auto) 0.51, Eosinophils # (Auto) 0.17, Basophils # (Auto) 0.02 10/08/17 12:10 Test 10/08/17 12:10 10/08/17 12:55 10/08/17 13:45 Prothrombin Time 27.2 SECONDS (9.0-12.0) Prothromb Time International Ratio 2.6 (0.9-1.1) Activated Partial Thromboplast Time 27.5 SECONDS (21.0-31.0) Partial Thromboplastin Ratio 1.1 Anion Gap 8.0 mmol/L (3-11) Est Creatinine Clear Calc Drug Dose 70.7 ml/min Estimated GFR () 94.9 Estimated GFR (Non- 81.9 BUN/Creatinine Ratio 19.3 (10-20) Calcium Level 8.7 mg/dl (8.5-10.1) Magnesium Level 2.3 mg/dl (1.8-2.4) Total Bilirubin 0.9 mg/dl (0.2-1) Direct Bilirubin mg/dl (0-0.2) Aspartate Amino Transf (AST/SGOT) 25 U/L (15-37) Alanine Aminotransferase (ALT/SGPT) 20 U/L (12-78) Alkaline Phosphatase 77 U/L (45-117) Total Creatine Kinase 315 U/L (39-308) Creatine Kinase MB 5.9 ng/ml (0.5-3.6) Creatine Kinase MB Ratio 1.9 (0-3.0) Total Protein 7.0 gm/dl (6.4-8.2) Albumin 3.5 gm/dl (3.4-5.0) Thyroid Stimulating Hormone (TSH) 2.200 uIu/ml (0.300-4.500) Chemistry Specimen Hemolysis White Blood Count 6.85 K/uL (4.8-10.8) Red Blood Count 5.23 M/uL (4.7-6.1) Hemoglobin 16.6 g/dL (14.0-18.0) Hematocrit 48.7 % (42-52) Mean Corpuscular Volume 93.1 fL (80-100) Mean Corpuscular Hemoglobin 31.7 pg (25-34) Mean Corpuscular Hemoglobin Concent 34.1 g/dl (32-36) Platelet Count 141 K/uL (130-400) Mean Platelet Volume 12.2 fL (7.4-10.4) Neutrophils (%) (Auto) 52.6 % Lymphocytes (%) (Auto) 36.9 % Monocytes (%) (Auto) 7.4 % Eosinophils (%) (Auto) 2.5 % Basophils (%) (Auto) 0.3 % Neutrophils # (Auto) 3.60 K/uL (1.4-6.5) Lymphocytes # (Auto) 2.53 K/uL (1.2-3.4) Monocytes # (Auto) 0.51 K/uL (0.11-0.59) Eosinophils # (Auto) 0.17 K/uL (0-0.5) Basophils # (Auto) 0.02 K/uL (0-0.2) RDW Standard Deviation 47.4 fL (36.4-46.3) RDW Coefficient of Variation 13.9 % (11.5-14.5) Immature Granulocyte % (Auto) 0.3 % Immature Granulocyte # (Auto) 0.02 K/uL (0.00-0.02) Urine Color DK YELLOW Urine Appearance CLEAR (CLEAR) Urine pH 5.0 (4.5-7.5) Urine Specific [place] 1.027 (1.000-1.030) Urine Protein NEG (NEG) Urine Glucose (UA) NEG (NEG) Urine Ketones TRACE (NEG) Urine Occult Blood NEG (NEG) Urine Nitrite NEG (NEG) Urine Bilirubin NEG (NEG) Urine Urobilinogen NEG (NEG) Urine Leukocyte Esterase TRACE (NEG) Urine WBC (Auto) 0 /hpf (0-5) Urine RBC (Auto) 0-4 /hpf (0-4) Urine Hyaline Casts (Auto) 0 /lpf (0-5) Urine Epithelial Cells (Auto) 0-5 /lpf (0-5) Urine Bacteria (Auto) NEG (NEG) Laboratory results reviewed by me Medications Administered Medications (Trade) Dose Ordered Sig/Nigel Route Start Time Stop Time Status Last Admin Dose Admin Sodium Chloride 1,000 ml @ 125 mls/hr Q8H STAT IV 10/08/17 11:42 10/08/17 16:52 DC 10/08/17 12:17 125 MLS/HR ECG Per My Interpretation Indication: bradycardia Rate (beats per minute): 68 Rhythm: atrial fibrillation Findings: RBBB, other (no PACs, no PVCs, no ST elevations, no ST depressions) Comparison ECG Date: Pre-Hospital Change: Atrial fibrillation at a rate of 71. PVC noted. No ST elevations or depressions. ED Course 1142: Ordered NSS 1000 ml @ 125 mls/hr IV. 1144: The patient was evaluated in room A11B. A complete history and physical exam was performed. 1426: I reevaluated the patient and he is doing well. 1441: Discussed the patient's case with Stephanie Guerra PA-C -[facility] Hospitalist. The patient will be evaluated for further treatment and disposition. Medical Decision Nursing notes reviewed and agree them. The patient's history was concerning for weakness. Differential diagnosis: Etiologies such as metabolic, infection, hypo/hyperglycemia, electrolyte abnormalities, cardiac sources, intracerebral event, toxicologic, neurologic, as well as others were entertained. Physical examination: As above. ER treatment provided: IV Lock Normal saline hydration On reassessment the patient felt better. Diagnostics interpretation by me: ECG: A. fib. The labs revealed an unremarkable CBC and chemistry panel. Cardiac markers negative. Imaging studies: Chest x-ray as above Patient reportedly was feeling weak and was found to have significant bradycardia. This bradycardia resolved by time EMS attended to the patient. Currently his ECG does not reveal any significant bradycardia. Further management in the hospital will be necessary. Consultation: A consultation was placed with the hospitalist. The case was discussed and diagnostics were reviewed. The patient was evaluated in the ER for further treatment. Medication Reconcilliation Current Medication List: was personally reviewed by me Blood Pressure Screening Patient's blood pressure: Normal blood pressure Blood pressure disposition: Did not require urgent referral Consults Time Called: 1434 Consulting Physician: [facility] Returned Call: [phone] Discussed the patient's case with JOAN Navas. The patient will be evaluated for further treatment and disposition. Impression Primary Impression: Bradycardia Scribe Attestation The scribe's documentation has been prepared under my direction and personally reviewed by me in its entirety. I confirm that the note above accurately reflects all work, treatment, procedures, and medical decision making performed by me. Departure Information Dispostion Being Evaluated By Hospitalist Referrals Heladio Webb III, M.D. (PCP) Patient Instructions My [facility]
[2017-10-08 19:32] VITALS: BP 102/66; PULSE 67; TEMP 37.2; O2SAT 94
[2017-10-08 19:34] VITALS: BP 121/77; PULSE 78; TEMP 36.7; O2SAT 95
[2017-10-08 20:00] VITALS: O2SAT 95
[2017-10-08] MEDS: OLANZAPINE 2.5 MG TAB PO SCH (20:50)
[2017-10-08] MEDS: DULOXETINE (CYMBALTA) 30 MG CAP PO SCH (20:50)
[2017-10-08] MEDS: NYSTATIN/TRIAMCINOLONE CR 15 GM TUBE EXT SCH (20:51)
[2017-10-08 23:14] VITALS: BP 110/75; PULSE 85; TEMP 36.7; O2SAT 93
[2017-10-09 03:25] VITALS: BP 116/68; PULSE 106; TEMP 36.7; O2SAT 94
[2017-10-09 05:45] LABS: HEMATOCRIT 42.1 % (42-52); HEMOGLOBIN 14.2 g/dL (14.0-18.0); MEAN CELL VOLUME 92.7 fL (80-100); MEAN CORPUSCULAR HEMOGLOBIN 31.3 pg (25-34); MEAN CORPUSCULAR HGB CONC 33.7 g/dl (32-36); MEAN PLATELET VOLUME 11.7 fL (7.4-10.4); PLATELET COUNT 150 K/uL (130-400); RED CELL DISTRIBUTION WIDTH CV 13.9 % (11.5-14.5); RED CELL DISTRIBUTION WIDTH SD 47.3 fL (36.4-46.3); WHITE BLOOD COUNT 6.52 K/uL (4.8-10.8)
[2017-10-09 05:54] LABS: INR 2.2 (0.9-1.1)
[2017-10-09 06:19] LABS: CREATININE 0.87 mg/dl (0.60-1.40); POTASSIUM 3.8 mmol/L (3.5-5.1)
[2017-10-09 07:14] VITALS: BP 113/68; PULSE 84; TEMP 36.5; O2SAT 97
[2017-10-09] MEDS: OLANZAPINE 2.5 MG TAB PO SCH ×2 (07:45→21:54)
[2017-10-09] MEDS: LEVOTHYROXINE 50 MCG TAB PO SCH (07:46)
[2017-10-09] MEDS: POLYETHYLENE (MIRALAX) 17 GM PACK PO SCH (07:46)
[2017-10-09] MEDS: CYANOCOBALAMIN 500 MCG TAB (VIT B-12) PO SCH (07:46)
[2017-10-09] MEDS: DULOXETINE HCL 60 MG CAP PO SCH (07:46)
[2017-10-09] MEDS: ATORVASTATIN 20 MG TAB PO SCH (07:46)
[2017-10-09] MEDS: NYSTATIN/TRIAMCINOLONE CR 15 GM TUBE EXT SCH ×2 (07:46→21:57)
--- NOTE | 2017-10-09 09:45 | Progress Note ---
Progress Note Date of Service Oct 09, 2017. Progress Note Subjective: Patient was seen and examined at bedside this AM. Overnight patient had episodes of tachycardia to the 150s. Patient denies any pain or shortness of breath or lightheadedness. He recognizes that he is in the hospital. He is cooperative on exam. He has obvious problems with memory and reported that the year is 1971, that this is the month of May, and President Narendra is the president. Patient reports that he lives alone with his Jennifer and he has a son in the local area. I called his son Serge Suresh [phone] and he reports that his father has memory problems and that Jennifer several years ago. He reports that his father at baseline is from a memory care center from [place] with peripheral neuropathy and ambulates with wheelchair. 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 [employer] Physical Exam: General Appearance: no apparent distress Head: normocephalic, atraumatic Eyes: normal inspection, sclerae normal ENT: normal ENT inspection, hearing grossly normal Neck: supple, trachea midline, no JVD Respiratory/Chest: chest non-tender, lungs clear, no respiratory distress, no accessory muscle use Cardiovascular: at time of exam the heart rate is within normal rates but is irregularly irregular Abdomen/GI: non tender, soft, no organomegaly Back: normal inspection Extremities/Musculoskelatal: normal inspection, no calf tenderness, no pedal edema Neurologic/Psych: memory deficits as above, able to move extremities This is an 82-year-old male with a PMH of vascular dementia, chronic A. 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, HR reportedly 28-40 bpm, admission EKG with A Fib @ 68 bpm, RBBB -Aricept and Lopressor has been held on admission -Overnight patient had episodes of tachycardia to the 150s -have consulted cardiology service and the likely plan is to slowly titrate beta blockers and continue observation Chronic A Fib -Continue coumadin -- INR 2.2 -have consulted cardiology service and the likely plan is to slowly titrate beta blockers and continue observation HTN -Normotensive HLD -Cont statin Vascular dementia -With behavioral component -Continue Zyprexa -Hold aricept for now Mood disorder -Continue Cymbalta Peripheral neuropathy history -obtain PT/OT evaluation Hypothyroidism -Cont levothyroxine DVT prophylaxis: Continue coumadin Code status: DNR per chart review, discussion with POA (son, Serge Suresh [phone]) on admission Disposition: remains in the hospital, further cardiology recommendations appreciated, further telemetry monitoring
[2017-10-09] MEDS ORDERED: METOPROLOL TARTRATE 25 MG TAB PO ONE (10:10)
--- NOTE | 2017-10-09 12:32 | CARDIOLOGY CONSULTATION ---
DATE OF CONSULTATION: 10/09/2017 CONSULTATION REQUESTED BY: Dr. Kaminski. REASON FOR CONSULTATION: Symptomatic bradycardia and tachybrady syndrome. HISTORY OF PRESENT ILLNESS: Mr. Suresh is a very pleasant yet significantly demented 82-year-old gentleman who normally follows with Dr. Cooper of our cardiology practice for his chronic atrial fibrillation. The patient presented to [facility] Emergency Department from his outpatient neurologist's office after report of an unresponsive episode. Per the chart history, the patient was seen by Dr. Shaw and his vitals checked and noted that his pulse was in the 40s and then on repeat check pulse was 28. He was sleepy yet arousable at that time and voiced no significant complaints. At that time, the patient was transported to [facility] Emergency Department via EMS who reports his heart rates were in the 60s and 70s. Upon arrival to the Emergency Department, his heart rates range from 60-82 beats per minute. His metoprolol and Aricept was held and he was admitted to telemetry. Overnight, his rates have now crept up into the 130s and 140s. Currently, the patient states he feels tired, but no other complaints. He denies experiencing any chest pain, shortness of breath, palpitations, lightheadedness, dizziness, or syncope. Again, the patient does have a history of significant dementia. PAST SURGICAL HISTORY: 1. Tonsil and adenoidectomy. 2. [place] tooth extraction. 3. Colonoscopy. 4. 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 MEDICAL ILLNESSES: 1. Persistent atrial fibrillation, rate controlled on chronic Coumadin therapy. 2. Dementia. 3. Hypertension. 4. 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 5. Hypothyroidism. 6. Dyslipidemia. 7. History of CVA. 8. Depression. FAMILY HISTORY: Noncontributory. SOCIAL HISTORY: No history of alcohol, tobacco, or recreational drug use. The patient is . He states he lives at home with his , but in fact he is a resident of [facility]. REVIEW OF SYSTEMS: As per HPI, all other review of systems reviewed and negative at this time. ALLERGIES: 1. BINU. 2. BEE VENOM. MEDICATIONS AN OUTPATIENT: 1. Metoprolol tartrate 25 mg b.i.d. 2. Coumadin as directed by the Coumadin clinic. 3. Aricept 10 mg daily. 4. Zyprexa b.i.d. 5. Levoxyl daily. 6. Cymbalta b.i.d. PHYSICAL EXAMINATION: VITAL SIGNS: Temperature 36.5, pulse 84, respiratory rate 12, blood pressure 113/68. GENERAL: Awake, alert, oriented to self. No acute distress. HEENT: Normocephalic, atraumatic. Pupils equal, round, and reactive to light and accommodation. Extraocular muscles intact. Anicteric sclerae. Moist mucous membranes. NECK: No JVD, no bruit. CARDIOVASCULAR: Irregularly irregular and fast. Unable to appreciate murmurs, rubs, or gallops. PULMONARY: Clear to auscultation bilaterally. No rales, rhonchi, or wheezing. ABDOMEN: Bowel sounds x4, soft. No rebound, guarding, tenderness. No organomegaly. EXTREMITIES: No clubbing, cyanosis or edema. +2 pedal pulses bilaterally. SKIN: Warm and dry. TEST RESULTS: A 12-lead EKG performed in the Emergency Department independently reviewed at this time shows atrial fibrillation at 68 beats per minute. IMPRESSION: 1. Atrial fibrillation with variable rates possible tachybrady. 2. Bradycardic episode. 3. History of dementia. 4. Persistent atrial fibrillation on chronic Coumadin therapy. RECOMMENDATIONS: It was my pleasure to see Mr. Suresh in consultation today. Given the fact that the patient's rates are now elevated in the 140s and he has consistently been above 60 beats per minute while in the hospital. I believe at this time it would be smith to restart his metoprolol at a lower dose, so I will start him on metoprolol 12.5 mg b.i.d. We will continue to hold his Aricept from now. His beta kateryna can be up titrated as necessary. My hope is to be able to avoid pacemaker implantation and the patient agrees with this, but we will follow him closely for now. Otherwise, his Coumadin should be continued at this time.
[2017-10-09 13:36] VITALS: BP 112/76; PULSE 85; TEMP 37; O2SAT 95
[2017-10-09 15:22] VITALS: BP 94/62; PULSE 85; TEMP 36.7; O2SAT 96
[2017-10-09] MEDS: WARFARIN SOD 4 MG TAB PO SCH (16:24)
[2017-10-09 19:46] VITALS: BP 112/78; PULSE 90; TEMP 37; O2SAT 97
[2017-10-09] MEDS: DULOXETINE (CYMBALTA) 30 MG CAP PO SCH (21:54)
[2017-10-09] MEDS: METOPROLOL TARTRATE 25 MG TAB PO SCH (21:55)
[2017-10-09 23:27] VITALS: BP 105/72; PULSE 92; TEMP 37; O2SAT 96
[2017-10-10 04:19] VITALS: BP 110/69; PULSE 82; TEMP 36.8; O2SAT 96
[2017-10-10] MEDS: LEVOTHYROXINE 50 MCG TAB PO SCH (05:44)
[2017-10-10 06:58] LABS: HEMATOCRIT 42.3 % (42-52); HEMOGLOBIN 14.3 g/dL (14.0-18.0); MEAN CORPUSCULAR HEMOGLOBIN 31.4 pg (25-34); MEAN CORPUSCULAR HGB CONC 33.8 g/dl (32-36); MEAN PLATELET VOLUME 11.3 fL (7.4-10.4); PLATELET COUNT 148 K/uL (130-400); RED CELL DISTRIBUTION WIDTH CV 13.9 % (11.5-14.5); RED CELL DISTRIBUTION WIDTH SD 47.1 fL (36.4-46.3); WHITE BLOOD COUNT 6.74 K/uL (4.8-10.8)
[2017-10-10 06:59] VITALS: BP 109/74; PULSE 79; TEMP 36.9; O2SAT 97
[2017-10-10 07:22] LABS: INR 1.7 (0.9-1.1)
[2017-10-10 07:39] LABS: ALBUMIN 3.2 gm/dl (3.4-5.0); CALCIUM 8.2 mg/dl (8.5-10.1); CREATININE 0.84 mg/dl (0.60-1.40); TOTAL PROTEIN 6.6 gm/dl (6.4-8.2)
[2017-10-10] MEDS: DULOXETINE HCL 60 MG CAP PO SCH (08:12)
[2017-10-10] MEDS: OLANZAPINE 2.5 MG TAB PO SCH (08:12)
[2017-10-10] MEDS: CYANOCOBALAMIN 500 MCG TAB (VIT B-12) PO SCH (08:12)
[2017-10-10] MEDS: ATORVASTATIN 20 MG TAB PO SCH (08:12)
[2017-10-10] MEDS: METOPROLOL TARTRATE 25 MG TAB PO SCH (08:12)
[2017-10-10] MEDS: POLYETHYLENE (MIRALAX) 17 GM PACK PO SCH (08:13)
[2017-10-10] MEDS: NYSTATIN/TRIAMCINOLONE CR 15 GM TUBE EXT SCH (08:13)
--- NOTE | 2017-10-10 10:23 | Cardiology Follow-Up ---
Subjective General Date of Service: Oct 10, 2017. 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 Chart, medications, telemetry reviewed. Patient without complaints. He denies chest pain, palpitations, or dyspnea. Continuous telemetry monitoring reveals the chronic atrial fibrillation with ventricular rates in the 80-90 bpm range. Occasional PVCs in singles observed. No significant bradycardia or pauses observed over the last 24 hours. Allergies Coded Allergies: Lactose Intolerance (GI) (Verified Allergy, Intermediate, PT states lactose intolerant, 10/08/17) BEE STING (Verified Allergy, Unknown, UNKNOWN, 10/08/17) Uncoded Allergies: NOVACINE (Allergy, Unknown, 05/15/02) Social History Smoking Status: Unknown if Ever Smoked Hx Tobacco Use In Past Year?: No Hx Alcohol Use - Type And Amou: No Hx Substance Use - Type And Am: No Problem List Medical Problems: (1) Abrasion Status: Acute (2) Atrial fibrillation with rapid ventricular response Status: Acute (3) Bradycardia Status: Acute (4) Elevated troponin Status: Acute (5) Fall Status: Acute (6) Mood disorder Status: Acute Physical Exam Vital Signs Last Vital Signs Documentation Date Time Temp Pulse Resp B/P (MAP) Pulse Ox O2 Delivery O2 Flow Rate FiO2 10/10/17 08:30 Room Air 10/10/17 06:59 36.9 79 18 109/74 (86) 97 Physical Exam Constitutional: Level of Distress: NAD, chronically ill Psychiatric: Mental Status: lethargic Orientation: to person, not oriented to time, not oriented to place Memory: recent memory abnormal, remote memory abnormal Head: normocephalic, atraumatic Neck: pertinent finding (Normal jugular venous pressure) Lungs: Auscultation: no wheezing, no rales/crackles, no rhonchi, deminished air movement, decreased breath sounds Cardiovascular: Heart Auscultation: II/ NICOLE, irregular rate rhythm Peripheral Pulses: Radial Pulse: normal on the left, normal on the right Dorsalis Pedis Pulse: decreased on the left, decreased on the right Abdomen: Bowel Sounds: normal Extremities: no cyanosis, no edema, no clubbing Neurologic: Cranial Nerves: grossly intact Assessment and Plan Assessment and Plan Chronic atrial fibrillation. 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 Ventricular rates are currently controlled on metoprolol tartrate 12.5 mg twice a day, off Aricept Chronic Coumadin anticoagulation Dementia. RECOMMENDATIONS: No current indication for single chamber pacemaker implantation. Continue metoprolol tartrate at 12.5 mg twice a day Continue chronic Coumadin anticoagulation. Outpatient Zio monitor to assess rates post discharge. Patient was seen and personally examined, telemetry reviewed. No bradycardia arrhythmias since hospitalization with good rate control on reduced metoprolol dosing Plan as above Js Penaloza MD Laboratory Results Last 24 Hours Test 10/10/17 06:42 White Blood Count 6.74 K/uL Red Blood Count 4.55 M/uL Hemoglobin 14.3 g/dL Hematocrit 42.3 % Mean Corpuscular Volume 93.0 fL Mean Corpuscular Hemoglobin 31.4 pg Mean Corpuscular Hemoglobin Concent 33.8 g/dl RDW Standard Deviation 47.1 fL RDW Coefficient of Variation 13.9 % Platelet Count 148 K/uL Mean Platelet Volume 11.3 fL Prothrombin Time 17.2 SECONDS Prothromb Time International Ratio 1.7 Sodium Level 140 mmol/L Potassium Level 4.0 mmol/L Chloride Level 107 mmol/L Carbon Dioxide Level 26 mmol/L Anion Gap 7.0 mmol/L Blood Urea Nitrogen 18 mg/dl Creatinine 0.84 mg/dl Est Creatinine Clear Calc Drug Dose 74.7 ml/min Estimated GFR () 95.8 Estimated GFR (Non- 82.7 BUN/Creatinine Ratio 21.6 Random Glucose 85 mg/dl Calcium Level 8.2 mg/dl Magnesium Level 2.2 mg/dl Total Bilirubin 0.5 mg/dl Aspartate Amino Transf (AST/SGOT) 21 U/L Alanine Aminotransferase (ALT/SGPT) 24 U/L Alkaline Phosphatase 71 U/L Total Protein 6.6 gm/dl Albumin 3.2 gm/dl Globulin 3.4 gm/dl Albumin/Globulin Ratio 0.9
[2017-10-10 12:00] VITALS: BP 121/79; PULSE 112; TEMP 36.4; O2SAT 97
[2017-10-10 13:25] VITALS: BP 114/81; PULSE 112; O2SAT 96
[2017-10-10] MEDS ORDERED: LPR25 PO (14:52)
[2017-10-10 14:58] VITALS: BP 114/81; PULSE 86; TEMP 36.4; O2SAT 96
--- NOTE | 2017-10-10 15:15 | Progress Note ---
Internal Med Progress Note Date of Service: Oct 10, 2017. Provider Documentation: Subjective Patient was seen and examined this AM. Patient denies acute pain or shortness of breath. Patient wants to go home. No acute overnight events on telemetry Physical Exam: General Appearance: no apparent distress Head: normocephalic, atraumatic Eyes: normal inspection, sclerae normal ENT: normal ENT inspection, hearing grossly normal Neck: supple, trachea midline, no JVD Respiratory/Chest: chest non-tender, lungs clear, no respiratory distress, no accessory muscle use Cardiovascular: at time of exam the heart rate is within normal rates Abdomen/GI: non tender, soft, no organomegaly Back: normal inspection Extremities/Musculoskelatal: normal inspection, no calf tenderness, no pedal edema Neurologic/Psych: memory deficits as above, able to move extremities ASSESSMENT & PLAN: Hospital Course and Discharge Plan This is an 82-year-old male with a PMH of vascular dementia, chronic A. 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 Chronic Atrial Fibrillation with possible Tachy Javier syndrome? -Episode occurred at neurology clinic, HR reportedly 28-40 bpm, admission EKG with A Fib @ 68 bpm, RBBB -Aricept and home dose Lopressor 25 mg BID was initially held on admission -On the first night of being in the hospital patient had episodes of tachycardia to the 150s -patient likely was more tachycardic being off metoprolol -cardiology service started Lopressor 12.5 mg b.i.d and heart rate was controlled without bradycardia episode; chronic atrial fibrillation with ventricular rates in the 80-90 bpm range -Outpatient Zio monitor to assess rates post discharge as per cardiology service who will arrange for this monitoring -Continue chronic Coumadin anticoagulation goal INR is between 2 to 3 HTN -Normotensive HLD -Continue statin Vascular dementia -With behavioral component -Continue Zyprexa -Can resume Donepezil as outpatient while on lowered Lopressor dose Mood disorder -Continue Cymbalta Peripheral neuropathy history stable Hypothyroidism -Cont levothyroxine Discharge Instructions Patient should follow up with primary care doctor at [facility] within 1 week Discharge INR is 1.7 while on coumadin. Patient will need to have INR repeated within 1 week Upcoming [facility] clinic appointments 11/05/2017 5:00 PM [facility], [facility] 11/21/2017 3:00 PM Madeline Jorge PA-C Cardiology, [facility] Vital Signs: Date Time Temp Pulse Resp B/P (MAP) Pulse Ox O2 Delivery O2 Flow Rate FiO2 10/10/17 14:58 36.4 86 18 96 Room Air 10/10/17 13:25 112 96 10/10/17 12:00 36.4 112 18 121/79 (93) 97 10/10/17 08:30 Room Air 10/10/17 06:59 36.9 79 18 109/74 (86) 97 Room Air 10/10/17 04:19 36.8 82 17 110/69 (83) 96 Room Air 10/09/17 23:59 Room Air 10/09/17 23:27 37.0 92 17 105/72 (83) 96 Room Air 10/09/17 19:46 37.0 90 16 112/78 (89) 97 Room Air 10/09/17 16:00 Room Air 10/09/17 15:22 36.7 85 15 94/62 (73) 96 Room Air Lab Results: Results Past 24 Hours Test 10/10/17 06:42 Range/Units White Blood Count 6.74 4.8-10.8 K/uL Red Blood Count 4.55 4.7-6.1 M/uL Hemoglobin 14.3 14.0-18.0 g/dL Hematocrit 42.3 42-52 % Mean Corpuscular Volume 93.0 80-100 fL Mean Corpuscular Hemoglobin 31.4 25-34 pg Mean Corpuscular Hemoglobin Concent 33.8 32-36 g/dl RDW Standard Deviation 47.1 36.4-46.3 fL RDW Coefficient of Variation 13.9 11.5-14.5 % Platelet Count 148 130-400 K/uL Mean Platelet Volume 11.3 7.4-10.4 fL Prothrombin Time 17.2 9.0-12.0 SECONDS Prothromb Time International Ratio 1.7 0.9-1.1 Sodium Level 140 136-145 mmol/L Potassium Level 4.0 3.5-5.1 mmol/L Chloride Level 107 98-107 mmol/L Carbon Dioxide Level 26 21-32 mmol/L Anion Gap 7.0 3-11 mmol/L Blood Urea Nitrogen 18 7-18 mg/dl Creatinine 0.84 0.60-1.40 mg/dl Est Creatinine Clear Calc Drug Dose 74.7 ml/min Estimated GFR () 95.8 Estimated GFR (Non- 82.7 BUN/Creatinine Ratio 21.6 10-20 Random Glucose 85 70-99 mg/dl Calcium Level 8.2 8.5-10.1 mg/dl Magnesium Level 2.2 1.8-2.4 mg/dl Total Bilirubin 0.5 0.2-1 mg/dl Aspartate Amino Transf (AST/SGOT) 21 15-37 U/L Alanine Aminotransferase (ALT/SGPT) 24 12-78 U/L Alkaline Phosphatase 71 45-117 U/L Total Protein 6.6 6.4-8.2 gm/dl Albumin 3.2 3.4-5.0 gm/dl Globulin 3.4 2.5-4.0 gm/dl Albumin/Globulin Ratio 0.9 0.9-2
--- NOTE | 2017-10-10 15:18 | Discharge Instructions ---
Discharge Instructions Date of Service Oct 10, 2017. Admission Reason for Admission: Syptomatic Bradycardia Discharge Discharge Diagnosis / Problem: Symptomatic Bradycardia, Dementia, Anticoagulated on coumadin, atrial fib Discharge Goals Goal(s): Improve disease control Activity Recommendations Activity Limitations: per Instructions/Follow-up section . Instructions / Follow-Up Instructions / Follow-Up Hospital Course and Discharge Plan This is an 82-year-old male with a PMH of vascular dementia, chronic A. 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 Chronic Atrial Fibrillation with possible Tachy Javier syndrome? -Episode occurred at neurology clinic, HR reportedly 28-40 bpm, admission EKG with A Fib @ 68 bpm, RBBB -Aricept and home dose Lopressor 25 mg BID was initially held on admission -On the first night of being in the hospital patient had episodes of tachycardia to the 150s -patient likely was more tachycardic being off metoprolol -cardiology service started Lopressor 12.5 mg b.i.d and heart rate was controlled without bradycardia episode; chronic atrial fibrillation with ventricular rates in the 80-90 bpm range -Outpatient Zio monitor to assess rates post discharge as per cardiology service who will arrange for this monitoring -Continue chronic Coumadin anticoagulation goal INR is between 2 to 3 HTN -Normotensive HLD -Continue statin Vascular dementia -With behavioral component -Continue Zyprexa -Can resume Donepezil as outpatient while on lowered Lopressor dose Mood disorder -Continue Cymbalta Peripheral neuropathy history stable Hypothyroidism -Cont levothyroxine Discharge Instructions Patient should follow up with primary care doctor at [facility] within 1 week Discharge INR is 1.7 while on coumadin. Patient will need to have INR repeated within 1 week Upcoming [facility] clinic appointments 11/05/2017 5:00 PM [facility], [facility] 11/21/2017 3:00 PM Madeline Jorge PA-C Cardiology, [facility] Current Hospital Diet Patient's current hospital diet: AHA Diet (Heart Healthy) Discharge Diet Recommended Diet: AHA Diet (Heart Healthy) Pending Studies Studies pending at discharge: no Laboratory Results 10/10/17 06:42 10/10/17 06:42 Test 10/08/17 12:10 10/08/17 12:55 7/9/18 13:45 10/08/17 18:08 Activated Partial Thromboplast Time 27.5 SECONDS (21.0-31.0) Partial Thromboplastin Ratio 1.1 Direct Bilirubin mg/dl (0-0.2) Total Creatine Kinase 315 U/L (39-308) Creatine Kinase MB 5.9 ng/ml (0.5-3.6) Creatine Kinase MB Ratio 1.9 (0-3.0) Thyroid Stimulating Hormone (TSH) 2.200 uIu/ml (0.300-4.500) Chemistry Specimen Hemolysis Immature Granulocyte % (Auto) 0.3 % White Blood Count 6.85 K/uL (4.8-10.8) Red Blood Count 5.23 M/uL (4.7-6.1) Hemoglobin 16.6 g/dL (14.0-18.0) Hematocrit 48.7 % (42-52) Mean Corpuscular Volume 93.1 fL (80-100) Mean Corpuscular Hemoglobin 31.7 pg (25-34) Mean Corpuscular Hemoglobin Concent 34.1 g/dl (32-36) Platelet Count 141 K/uL (130-400) Mean Platelet Volume 12.2 fL (7.4-10.4) Neutrophils (%) (Auto) 52.6 % Lymphocytes (%) (Auto) 36.9 % Monocytes (%) (Auto) 7.4 % Eosinophils (%) (Auto) 2.5 % Basophils (%) (Auto) 0.3 % Neutrophils # (Auto) 3.60 K/uL (1.4-6.5) Lymphocytes # (Auto) 2.53 K/uL (1.2-3.4) Monocytes # (Auto) 0.51 K/uL (0.11-0.59) Eosinophils # (Auto) 0.17 K/uL (0-0.5) Basophils # (Auto) 0.02 K/uL (0-0.2) Immature Granulocyte # (Auto) 0.02 K/uL (0.00-0.02) Urine Color DK YELLOW Urine Appearance CLEAR (CLEAR) Urine pH 5.0 (4.5-7.5) Urine Specific Spring 1.027 (1.000-1.030) Urine Protein NEG (NEG) Urine Glucose (UA) NEG (NEG) Urine Ketones TRACE (NEG) Urine Occult Blood NEG (NEG) Urine Nitrite NEG (NEG) Urine Bilirubin NEG (NEG) Urine Urobilinogen NEG (NEG) Urine Leukocyte Esterase TRACE (NEG) Urine WBC (Auto) 0 /hpf (0-5) Urine RBC (Auto) 0-4 /hpf (0-4) Urine Hyaline Casts (Auto) 0 /lpf (0-5) Urine Epithelial Cells (Auto) 0-5 /lpf (0-5) Urine Bacteria (Auto) NEG (NEG) Troponin I < 0.015 ng/ml (0-0.045) Test 10/10/17 06:42 Red Blood Count 4.55 M/uL (4.7-6.1) Mean Corpuscular Volume 93.0 fL (80-100) Mean Corpuscular Hemoglobin 31.4 pg (25-34) Mean Corpuscular Hemoglobin Concent 33.8 g/dl (32-36) RDW Standard Deviation 47.1 fL (36.4-46.3) RDW Coefficient of Variation 13.9 % (11.5-14.5) Mean Platelet Volume 11.3 fL (7.4-10.4) Prothrombin Time 17.2 SECONDS (9.0-12.0) Prothromb Time International Ratio 1.7 (0.9-1.1) Anion Gap 7.0 mmol/L (3-11) Est Creatinine Clear Calc Drug Dose 74.7 ml/min Estimated GFR () 95.8 Estimated GFR (Non- 82.7 BUN/Creatinine Ratio 21.6 (10-20) Calcium Level 8.2 mg/dl (8.5-10.1) Magnesium Level 2.2 mg/dl (1.8-2.4) Total Bilirubin 0.5 mg/dl (0.2-1) Aspartate Amino Transf (AST/SGOT) 21 U/L (15-37) Alanine Aminotransferase (ALT/SGPT) 24 U/L (12-78) Alkaline Phosphatase 71 U/L (45-117) Total Protein 6.6 gm/dl (6.4-8.2) Albumin 3.2 gm/dl (3.4-5.0) Globulin 3.4 gm/dl (2.5-4.0) Albumin/Globulin Ratio 0.9 (0.9-2) Medical Emergencies . Who to Call and When: Medical Emergencies: If at any time you feel your situation is an emergency, please call 911 immediately. . Non-Emergent Contact Non-Emergency issues call your: Primary Care Provider, Cafeteria Clerk Call Non-Emergent contact if: you have any medication questions . . "Provider Documentation" section prepared by Saul Kaminski. .
--- NOTE | 2017-10-10 15:26 | Discharge Summary ---
Discharge Summary Date of Service Oct 10, 2017. Discharge Summary Admission Date: Oct 08, 2017 at 15:35 Discharge Date: Oct 10, 2017 Discharge Disposition: correction facility (discharge to [facility]) Principal Diagnosis: Symptomatic Bradycardia, Dementia, Anticoagulated on coumadin, atrial fibrillation Medication Reconciliation New Medications: Metoprolol Tartrate (Lopressor) 25 Mg Tab 12.5 MG PO BID for 30 Days, #30 TAB Continued Medications: Acetaminophen (Tylenol) 325 Mg Tab 650 MG PO Q6H PRN for Pain or Fever, TAB Atorvastatin (Lipitor) 20 Mg Tab 20 MG PO DAILY, TAB Cholecalciferol (Vitamin D3) 50,000 Unit Tab 1 TAB PO Sunday Cyanocobalamin (B12) 1,000 Mcg Tab 1 TAB PO DAILY Donepezil Hydrochloride (Aricept) 10 Mg Tab 1 TAB PO HS for 30 Days, #30 TAB 5 Refills Duloxetine Hcl (Cymbalta) 60 Mg Cap 1 CAP PO QAM for 90 Days, #90 CAP 3 Refills Duloxetine HCl (Duloxetine HCl) 30 Mg Cap 1 TAB PO QPM Epinephrine (Epipen) 0.3 Mg/0.3 Ml Inj 0.3 MG IM UD PRN for Allergic Reaction Levothyroxine Sodium (Synthroid) 50 Mcg Tab 50 MCG PO DAILY, TAB Nystatin-Triamcinolone (Nystatin/Triamcinolon... 649937-6.1 Unit/gm-%) 1 Cre Cre 1 APPLN EXT BID apply to glans penis BID Olanzapine (Zyprexa) 2.5 Mg Tab 1 TAB PO BID for 30 Days, #30 TAB 1 Refill Polyethylene (Miralax) 17 Gm Pow 17 GM PO DAILY Sennosides (Senna Lax) 8.6 Mg Tab 2 TAB PO BID PRN for Constipation Warfarin Sod (Coumadin) 3 Mg Tab 2 TABS PO Sunday Take 2 3mg tabs on Mondays for a total of 6mg. Warfarin Sod (Coumadin) 4 Mg Tab 1 TAB PO [id number] Discontinued Medications: Metoprolol Tartrate (Lopressor) 25 Mg Tab 25 MG PO BID, TAB Admission Information HPI (per Admitting provider): This is an 82-year-old male from [facility] with a PMH of vascular dementia , chronic A. fib and h/o right cerebellar CVA (on Coumadin), HTN, HLD, hypothyroidism and other medical problems listed below who presents from neurology clinic after an episode of symptomatic bradycardia. Patient is a poor historian secondary to dementia, so history obtained from chart review. Patient was at neurology clinic earlier today seeing Dr. Shaw for follow-up of vascular dementia. Was found to be bradycardic with a heart rate of 40 but repeat HR was 28. Patient was reportedly sleepy but arousable, oriented to person and without complaints. In route to the hospital, EMS repeated vitals and heart rate was found to be in the 60s-70s and has remained in the 60s in the ER. Currently, patient denies any headache, lightheadedness, visual changes, visual changes, chest pain, palpitations, shortness of breath, abdominal pain, nausea, vomiting, bowel/bladder changes or LE swelling. Is alert and oriented to self but not to situation. Is a DNR and son, Serge, is POA. Physical Exam (per Admitting): General Appearance: WD/WN, no apparent distress, + pertinent finding ( pleasantly confused ) Head: normocephalic, atraumatic Eyes: normal inspection, PERRL, sclerae normal ENT: normal ENT inspection, hearing grossly normal, pharynx normal (moist mucous membranes ) Neck: supple, thyroid normal, trachea midline Respiratory/Chest: chest non-tender, lungs clear, no respiratory distress, no accessory muscle use, + decreased breath sounds Cardiovascular: no murmur, normal peripheral pulses, + irregularly irregular Abdomen/GI: non tender, soft, no organomegaly Back: normal inspection Extremities/Musculoskelatal: normal inspection, no calf tenderness, no pedal edema Neurologic/Psych: no motor/sensory deficits, alert (oriented to self only ) , normal mood/affect Skin: normal color, warm/dry Hospital Course Hospital Course and Discharge Plan This is an 82-year-old male with a PMH of vascular dementia, chronic A. 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 Chronic Atrial Fibrillation with possible Tachy Javier syndrome? -Episode occurred at neurology clinic, HR reportedly 28-40 bpm, admission EKG with A Fib @ 68 bpm, RBBB -Aricept and home dose Lopressor 25 mg BID was initially held on admission -On the first night of being in the hospital patient had episodes of tachycardia to the 150s -patient likely was more tachycardic being off metoprolol -cardiology service started Lopressor 12.5 mg b.i.d and heart rate was controlled without bradycardia episode; chronic atrial fibrillation with ventricular rates in the 80-90 bpm range -Outpatient Zio monitor to assess rates post discharge as per cardiology service who will arrange for this monitoring -Continue chronic Coumadin anticoagulation goal INR is between 2 to 3 HTN -Normotensive HLD -Continue statin Vascular dementia -With behavioral component -Continue Zyprexa -Can resume Donepezil as outpatient while on lowered Lopressor dose Mood disorder -Continue Cymbalta Peripheral neuropathy history stable Hypothyroidism -Cont levothyroxine Discharge Instructions Patient should follow up with primary care doctor at [facility] within 1 week Discharge INR is 1.7 while on coumadin. Patient will need to have INR repeated within 1 week Upcoming [facility] clinic appointments 11/05/2017 5:00 PM [facility] Sp Pharmacy, [facility] 11/21/2017 3:00 PM Madeline Jorge PA-C Cardiology, [facility] Total time spent on discharge = 40 minutes This includes examination of the patient, discharge planning, medication reconciliation, and communication with other providers. Discharge Instructions see above
[2017-10-10] MEDS: WARFARIN SOD 4 MG TAB PO SCH (15:40)
[2017-10-10] MEDS ORDERED: DONEPEZIL HCL 10 MG TAB PO SCH (21:00)
[2017-10-15] MEDS ORDERED: WARFARIN SOD 6 MG TAB PO SCH (16:00)
== END 2017-10-10 16:23 ==
LOC: EDBD 11:39 → C.EDA 11:40 → C.2T 15:35 → ENRESERV 15:50
PROVIDERS: ADMIT Internal Medicine; ATTEND Hospitalist
DX: R00.1 Bradycardia, unspecified (principal); F01.50 Vascular dementia, unspecified severity, without behavioral disturbance, psychotic disturbance, mood disturbance, and anxiety; I48.91 Unspecified atrial fibrillation; I10 Essential (primary) hypertension; E78.5 Hyperlipidemia, unspecified; F32.9 Major depressive disorder, single episode, unspecified; Z91.030 Bee allergy status; Z86.73 Personal history of transient ischemic attack (TIA), and cerebral infarction without residual deficits; Z79.899 Other long term (current) drug therapy; Z79.01 Long term (current) use of anticoagulants